=== PATIENT | female | born 1945 | race Caucasian/White ===

== ENCOUNTER 2017-06-30 09:08 | Emergency (ER) | payer MEDICARE ==
[~2017-06-30] VITALS: Ht 157.4 cm; Wt 68.0 kg
[~2017-06-30 09:08] MED LIST: ANTIVERT25 MG PO; ESTRACE0.5 MG PO; NORFLEX100 MG PO; SYNTHROID0.1 MG PO; ULTRAM50 MG PO; VITAMIN D50000 I2 PO; Zofran4 MG PO
[2017-06-30] MEDS ORDERED: MEDROL DOSEPAK4 MG PO (10:40)
[2017-06-30] MEDS ORDERED: CYCLOBENZAPRINE10 MG PO (10:40)
== END 2017-06-30 11:14 | disposition home or self-care (01) ==
LOC: ED 09:08
DX: S39.012A Strain of muscle, fascia and tendon of lower back, initial encounter (principal); Z79.899 Other long term (current) drug therapy; X58.XXXA Exposure to other specified factors, initial encounter; Y93.89 Activity, other specified; Y92.89 Other specified places as the place of occurrence of the external cause; Y99.8 Other external cause status

== ENCOUNTER 2018-01-21 10:12 | Inpatient (IN) | payer MEDICARE ==
[~2018-01-21] VITALS: Ht 157.5 cm; Wt 65.3 kg
[2018-01-21] VITALS (10 sets, daily range): BP systolic 104–124; BP diastolic 55–86
[~2018-01-21 10:12] MED LIST changes: +CYCLOBENZAPRINE10 MG PO; +MEDROL DOSEPAK4 MG PO
[2018-01-21 10:50] LABS: BASO % 0.4 % (0.0-1.0); EOS # 0.1 10*3/uL (0.0-0.4); EOS % 1.2 % (1.0-4.0); HEMATOCRIT 40.9 % (37.0-47.0); HEMOGLOBIN 13.6 g/dl (12.0-16.0); MEAN CELL VOLUME 95.8 fl (81.0-99.0); MEAN CORPUSCULAR HGB 31.9 pg (27.0-31.0); MEAN CORPUSCULAR HGB CONC 33.3 g/dl (33.0-37.0); MEAN PLATELET VOLUME 12.1 fl (9.6-12.3); MONO # 0.5 10*3/uL (0.1-1.0); MONO % 5.4 % (3.0-9.0); NEUT % 51.8 % (47.0-73.0); PLATELET COUNT AUTOMATED 270 10*3/uL (130-400); RED BLOOD COUNT 4.27 10*6/uL (4.10-5.10); WHITE BLOOD COUNT 9.7 10*3/uL (4.8-10.8)
[2018-01-21 10:59] LABS: INTERNATIONAL NORM RATIO 0.9 (2.0-3.5)
[2018-01-21 11:06] LABS: ALKALINE PHOSPHATASE 76 U/L (45-117); BUN 12 mg/dl (7-24); CHLORIDE 106 mmol/L (98-107); CREATININE 0.99 mg/dL (0.55-1.02); POTASSIUM 3.9 mmol/L (3.5-5.1); SGOT/AST 22 IU/L (3-35); SGPT/ALT 17 U/L (12-78); SODIUM 140 mmol/L (136-145); TOTAL PROTEIN 7.6 gm/dL (6.4-8.2); TROPONIN I < 0.015 ng/ml (<0.045)
[2018-01-21] MEDS ORDERED: MULTIVITAMINS1 EAC5 PO (11:54)
[2018-01-21] MEDS ORDERED: B-121000 MCG PO (11:55)
[2018-01-21] MEDS ORDERED: LEVOXYL100 MCG PO (11:58)
[2018-01-21] MEDS ORDERED: CLARITIN10 MG PO (11:58)
[2018-01-21] MEDS ORDERED: ASPIRIN CHEWABL81 MG PO (11:58)
[2018-01-21 14:28] LABS: FREE T4 1.35 ng/dl (0.76-1.46); PHOSPHOROUS 3.1 mg/dL (2.5-4.9)
[2018-01-21 14:30] LABS: TROPONIN I < 0.015 ng/ml (<0.045)
[2018-01-21 17:08] LABS: BILIRUBIN NEGATIVE (NEGATIVE); BLOOD NEGATIVE (NEGATIVE); CLARITY SL CLOUDY (CLEAR); COLOR YELLOW (YELLOW); GLUCOSE NEGATIVE (NEGATIVE); KETONE TRACE (NEGATIVE); LEUKO ESTERASE 1+ (NEGATIVE); NITRITE NEGATIVE (NEGATIVE); PH 5.5 (5.0-9.0); UROBILINOGEN 0.2 E.U./dl (0.2-1.0)
[2018-01-21 17:25] LABS: BACTERIA 4+; WBC 51-100 wbc/hpf (0-5)
[2018-01-22] VITALS: BP 102/46
[2018-01-22 04:00] VITALS: BP 118/64
[2018-01-22 06:06] LABS: BASO # 0.1 10*3/uL (0.0-0.1); BASO % 0.6 % (0.0-1.0); EOS # 0.2 10*3/uL (0.0-0.4); EOS % 1.8 % (1.0-4.0); HEMATOCRIT 37.7 % (37.0-47.0); HEMOGLOBIN 12.4 g/dl (12.0-16.0); LYMPH # 3.2 10*3/uL (1.3-4.4); MEAN CELL VOLUME 96.4 fl (81.0-99.0); MEAN CORPUSCULAR HGB 31.7 pg (27.0-31.0); MEAN CORPUSCULAR HGB CONC 32.9 g/dl (33.0-37.0); MEAN PLATELET VOLUME 12.3 fl (9.6-12.3); MONO # 0.6 10*3/uL (0.1-1.0); MONO % 6.8 % (3.0-9.0); NEUT # 4.2 10*3/uL (2.3-7.9); NEUT % 51.4 % (47.0-73.0); PLATELET COUNT AUTOMATED 241 10*3/uL (130-400); RED BLOOD COUNT 3.91 10*6/uL (4.10-5.10); WHITE BLOOD COUNT 8.2 10*3/uL (4.8-10.8)
[2018-01-22 06:35] LABS: ALBUMIN 3.6 gm/dl (3.1-4.5); ALKALINE PHOSPHATASE 68 U/L (45-117); BUN 15 mg/dl (7-24); CHLORIDE 107 mmol/L (98-107); CREATININE 0.96 mg/dL (0.55-1.02); SGOT/AST 16 IU/L (3-35); SGPT/ALT 16 U/L (12-78); SODIUM 139 mmol/L (136-145); TOTAL PROTEIN 6.9 gm/dL (6.4-8.2)
[2018-01-22 08:00] VITALS: BP 102/60; BP 115/58
[2018-01-22] MEDS ORDERED: MUCINEX DM 30/61 TAB PO (11:17)
[2018-01-22] MEDS ORDERED: VITAMIN D31000 UNIT PO (11:17)
[2018-01-22] MEDS ORDERED: FLONASE ALLERG9.9 ML NAS (11:17)
[2018-01-22] MEDS ORDERED: XARE20MG PO (11:17)
[2018-01-22] MEDS ORDERED: METOPROLOL SUCC25 M2 PO (11:17)
[2018-01-22] MEDS ORDERED: CIPRO250 MG PO (11:23)
[2018-01-22 12:00] VITALS: BP 109/64
== END 2018-01-22 13:10 | disposition home or self-care (01) | DRG 309 ==
LOC: ED 10:12 → ICCU 11:17 → EDHOLD 11:17 → ICCU 11:30
PROVIDERS: Internal Medicine Hospice and Palliative Medicine; Student in an Organized Health Care Education/Training Program
DX: I48.0 Paroxysmal atrial fibrillation (principal); N39.0 Urinary tract infection, site not specified; E67.8 Other specified hyperalimentation; E03.9 Hypothyroidism, unspecified; E55.9 Vitamin D deficiency, unspecified; R05 Cough; Z79.82 Long term (current) use of aspirin; Z79.899 Other long term (current) drug therapy; Z98.42 Cataract extraction status, left eye; Z98.41 Cataract extraction status, right eye; Z87.891 Personal history of nicotine dependence; Z90.712 Acquired absence of cervix with remaining uterus; Z88.2 Allergy status to sulfonamides; Z82.3 Family history of stroke; Z82.49 Family history of ischemic heart disease and other diseases of the circulatory system

== ENCOUNTER 2018-02-15 08:30 | Inpatient (IN) | payer MEDICARE ==
[2018-02-15] VITALS (9 sets, daily range): BP systolic 100–138; BP diastolic 60–84
[~2018-02-15] VITALS: Ht 157.4 cm; Wt 64.4 kg
[~2018-02-15 08:30] MED LIST changes: +ASPIRIN CHEWABL81 MG PO; +B-121000 MCG PO; +CIPRO250 MG PO; +CLARITIN10 MG PO; +FLONASE ALLERG9.9 ML NAS; +LEVOXYL100 MCG PO; +METOPROLOL SUCC25 M2 PO; +MUCINEX DM 30/61 TAB PO; +MULTIVITAMINS1 EAC5 PO; +VITAMIN D31000 UNIT PO; +XARE20MG PO
[2018-02-15 08:55] LABS: BASO # 0.1 10*3/uL (0.0-0.1); BASO % 0.6 % (0.0-1.0); EOS # 0.1 10*3/uL (0.0-0.4); EOS % 0.9 % (1.0-4.0); HEMATOCRIT 41.4 % (37.0-47.0); HEMOGLOBIN 13.9 g/dl (12.0-16.0); LYMPH # 3.4 10*3/uL (1.3-4.4); LYMPH % 38.3 % (27.0-41.0); MEAN CELL VOLUME 94.7 fl (81.0-99.0); MEAN CORPUSCULAR HGB 31.8 pg (27.0-31.0); MEAN CORPUSCULAR HGB CONC 33.6 g/dl (33.0-37.0); MEAN PLATELET VOLUME 11.8 fl (9.6-12.3); MONO # 0.5 10*3/uL (0.1-1.0); MONO % 5.4 % (3.0-9.0); NEUT # 4.8 10*3/uL (2.3-7.9); NEUT % 54.5 % (47.0-73.0); PLATELET COUNT AUTOMATED 278 10*3/uL (130-400); RED BLOOD COUNT 4.37 10*6/uL (4.10-5.10); WHITE BLOOD COUNT 8.8 10*3/uL (4.8-10.8)
[2018-02-15 09:04] LABS: ACT PARTIAL THROMBO TIME 30.7 SECONDS (20.8-31.5)
[2018-02-15 09:12] LABS: ALBUMIN 3.7 gm/dl (3.1-4.5); ALKALINE PHOSPHATASE 82 U/L (45-117); BUN 15 mg/dl (7-24); CHLORIDE 107 mmol/L (98-107); LIPASE 211 U/L (73-393); SGOT/AST 16 IU/L (3-35); SGPT/ALT 19 U/L (12-78); SODIUM 140 mmol/L (136-145); TOTAL PROTEIN 7.7 gm/dL (6.4-8.2)
[2018-02-15 09:14] LABS: TROPONIN I < 0.015 ng/ml (<0.045)
[2018-02-15 13:07] LABS: BILIRUBIN NEGATIVE (NEGATIVE); BLOOD NEGATIVE (NEGATIVE); CLARITY SL CLOUDY (CLEAR); COLOR YELLOW (YELLOW); GLUCOSE NEGATIVE (NEGATIVE); KETONE TRACE (NEGATIVE); LEUKO ESTERASE 1+ (NEGATIVE); NITRITE NEGATIVE (NEGATIVE); SPECIFIC GRAVITY 1.015 (1.005-1.030); UROBILINOGEN 0.2 E.U./dl (0.2-1.0)
[2018-02-15 13:15] LABS: MUCOUS TRACE
[2018-02-15] MEDS ORDERED: METOPROLOL TART50 M1 PO (14:27)
[2018-02-16] VITALS: BP 120/65
[2018-02-16 07:28] LABS: BASO % 0.5 % (0.0-1.0); EOS # 0.1 10*3/uL (0.0-0.4); EOS % 1.3 % (1.0-4.0); HEMATOCRIT 37.5 % (37.0-47.0); HEMOGLOBIN 12.3 g/dl (12.0-16.0); LYMPH # 3.1 10*3/uL (1.3-4.4); MEAN CELL VOLUME 96.2 fl (81.0-99.0); MEAN CORPUSCULAR HGB 31.5 pg (27.0-31.0); MEAN CORPUSCULAR HGB CONC 32.8 g/dl (33.0-37.0); MONO # 0.5 10*3/uL (0.1-1.0); NEUT % 51.9 % (47.0-73.0); PLATELET COUNT AUTOMATED 234 10*3/uL (130-400); RED CELL DISTRI WIDTH 13.1 % (0-14.5); WHITE BLOOD COUNT 7.7 10*3/uL (4.8-10.8)
[2018-02-16 07:41] LABS: BUN 16 mg/dl (7-24); CHLORIDE 105 mmol/L (98-107); CREATININE 0.92 mg/dL (0.55-1.02); PHOSPHOROUS 3.5 mg/dL (2.5-4.9); POTASSIUM 4.1 mmol/L (3.5-5.1); SODIUM 139 mmol/L (136-145)
[2018-02-16 07:51] LABS: FREE T4 1.29 ng/dl (0.76-1.46)
[2018-02-16 08:00] VITALS: BP 126/63
[2018-02-16 12:00] VITALS: BP 100/50
[2018-02-16] MEDS ORDERED: XARE20MG PO (14:17)
[2018-02-16] MEDS ORDERED: METOPROLOL TART50 M1 PO (14:17)
== END 2018-02-16 16:22 | disposition home or self-care (01) | DRG 309 ==
LOC: ED 08:30 → 4E 10:01 → EDHOLD 10:01 → 4E 10:12
PROVIDERS: Emergency Medicine; Student in an Organized Health Care Education/Training Program
DX: I48.0 Paroxysmal atrial fibrillation (principal); N17.9 Acute kidney failure, unspecified; E83.41 Hypermagnesemia; I36.1 Nonrheumatic tricuspid (valve) insufficiency; I34.0 Nonrheumatic mitral (valve) insufficiency; E03.9 Hypothyroidism, unspecified; R73.9 Hyperglycemia, unspecified; Z66 Do not resuscitate; Z51.5 Encounter for palliative care; Z90.710 Acquired absence of both cervix and uterus; Z98.42 Cataract extraction status, left eye; Z98.41 Cataract extraction status, right eye; Z87.891 Personal history of nicotine dependence; Z82.3 Family history of stroke; Z82.49 Family history of ischemic heart disease and other diseases of the circulatory system; Z88.2 Allergy status to sulfonamides; Z79.899 Other long term (current) drug therapy

== ENCOUNTER → 2018-03-03 | Outpatient (CLI) | payer MEDICARE ==
[~2018-03-03] MED LIST changes: +METOPROLOL TART50 M1 PO; +XARELTO20 M1 PO
== END | disposition home or self-care (01) ==
LOC: RESCLI 02:08
DX: I10 Essential (primary) hypertension (principal); E03.9 Hypothyroidism, unspecified; E78.5 Hyperlipidemia, unspecified; I48.0 Paroxysmal atrial fibrillation; E55.9 Vitamin D deficiency, unspecified; E66.3 Overweight

== ENCOUNTER → 2018-03-05 | Outpatient (CLI) | payer MEDICARE ==
[~2018-03-05] VITALS: Ht 157.4 cm; Wt 64.9 kg
== END | disposition home or self-care (01) ==
LOC: SDC 03-04 10:15 → EDSTATUS 10:15 → SDC 10:15 → CARD 12:00 → SDC 12:00
DX: I48.91 Unspecified atrial fibrillation (principal); E03.9 Hypothyroidism, unspecified; Z82.49 Family history of ischemic heart disease and other diseases of the circulatory system; Z53.9 Procedure and treatment not carried out, unspecified reason

== ENCOUNTER → 2018-03-10 | Outpatient (CLI) | payer MEDICARE | END | disposition home or self-care (01) | LOC: RESCLI 03:46 | DX: I10 Essential (primary) hypertension (principal); E03.9 Hypothyroidism, unspecified; E78.5 Hyperlipidemia, unspecified; I48.0 Paroxysmal atrial fibrillation; E55.9 Vitamin D deficiency, unspecified; E66.3 Overweight; R00.1 Bradycardia, unspecified; Z87.891 Personal history of nicotine dependence ==

== ENCOUNTER → 2018-04-06 | Outpatient (CLI) | payer MEDICARE ==
[~2018-04-06] MED LIST changes: +ALLERGY RELIE15.8 ML NAS; +BISACODYL LAXATI5 MG PO; +DILTIAZEM 24HR120 MG PO; +DOXYCYCLINE100 M3 PO; +FLECAINIDE ACE100 M1 PO; +GOOD SENSE400 MG/5 M PO; +HYDROCODONE-AC1 EAC1 PO; +KLOR-CON 1010 ME1 PO; +LASIX20 MG PO; +LEXAPRO10 MG PO; +LEXAPRO5 M1 PO; +Lopressor25 MG PO; +PROPAFENONE HC225 M1 PO; +SODIUM CHLORI1000 MG PO; +SODIUM CHLORIDE1 GM PO; +TYLENOL325 M2 PO
== END | disposition home or self-care (01) ==
LOC: RESCLI 04:31
DX: I10 Essential (primary) hypertension (principal); E03.9 Hypothyroidism, unspecified; E78.5 Hyperlipidemia, unspecified; I48.0 Paroxysmal atrial fibrillation; E55.9 Vitamin D deficiency, unspecified; E66.3 Overweight; R00.1 Bradycardia, unspecified; Z90.710 Acquired absence of both cervix and uterus; Z87.891 Personal history of nicotine dependence

== ENCOUNTER → 2018-04-09 | Outpatient (CLI) | payer MEDICARE | END | disposition home or self-care (01) | LOC: RAD 12:15 | DX: M47.892 Other spondylosis, cervical region (principal); M43.12 Spondylolisthesis, cervical region; M19.011 Primary osteoarthritis, right shoulder ==

== ENCOUNTER 2018-04-17 10:49 | Inpatient (IN) | payer MEDICARE ==
[2018-04-17] VITALS (17 sets, daily range): BP systolic 66–128; BP diastolic 30–76
[~2018-04-17] VITALS: Ht 157.5 cm; Wt 64.6 kg
--- NOTE | ~2018-04-17 | CON ---
[place], [place] REPORT OF CONSULTATION NAME: [facility] [id number] UNIT #: [id number] ROOM: 522 DOCTOR: TEQUILA GONZALEZ MD BIRTHDATE: [birth year] DOS: 04/18/2018 PSYCHIATRIC CONSULTATION REPORT REASON FOR CONSULTATION: Medication management for depression and anxiety. HISTORY OF PRESENT ILLNESS: The patient was seen, chart reviewed and spoke with nursing staff. Per nursing, the patient has been becoming increasingly depressed and anxious, mostly after the of her a few months ago. Reportedly, lately she was also having some symptoms of sundowning. The patient was pleasant and cooperative. She is a 72-year-old female who got admitted to the ICU for management of hypotension and bradycardia. She was sitting by the window on a chair. She talked about her anxiety and the depression mostly after the of her . She said that lately she feels extremely tired. She wakes up in the morning, she eats her breakfast and then goes back to bed and sleeps all day. She also seems to have significant memory impairment, not able to recall the month, not able to recall the year or the place. She acknowledges that her memory has been going downhill. She feels sad and down, but denied hopelessness or helplessness. Denied any other neurovegetative signs or symptoms of depression. She reports excessive sleep. Denied any problem with her appetite. She denied any symptoms of psychosis, demian or hypomania. PAST MEDICAL HISTORY: Significant for atrial fibrillation, hypermagnesemia, hypothyroidism and vitamin D deficiency. PAST PSYCHIATRIC HISTORY: The patient denied any prior psychiatric hospitalization, denied past suicide attempt. No suicide in the family. Denied having any gun at home. She has never been on any psychotropics in the past. SUBSTANCE ABUSE HISTORY: The patient denied any drugs or alcohol. SOCIAL HISTORY: She was born and raised in [place]. She finished high school, twice, currently , lives at home on her own. The son and the [id number]-rtd live in the trailer close by. MENTAL STATUS EXAMINATION: The patient was pleasant and cooperative. She was alert and oriented to month only. Described her mood as "I don't know." Affect was pretty anxious and distraught. She denied any auditory or visual hallucination. No delusion or paranoia noted. She denied any suicidal ideation, intent or plan. She also denied any homicidal ideation, intent or plan. Insight and judgment were impaired because of the fact that her cognitive is slowly declining, cognitive impairment. ASSESSMENT: 1. Depressive disorder, not otherwise specified, 2. Generalized anxiety disorder. 3. Cognitive disorder, not otherwise specified; rule out major neurocognitive disorder. [place], [place] REPORT OF CONSULTATION NAME: SAIDA HUYNH UNIT #: [id number] ROOM: 522 DOCTOR: TEQUILA GONZALEZ MD BIRTHDATE: [birth year] PLAN: 1. I will start her on Lexapro 5 mg in the morning with a plan to titrate that up if needed. 2. The patient needs a psychiatric followup appointment on discharge. 3. Prior to the discharge, the medical team needs to sit down with the patient's son and discuss the discharge plan and make sure the son is comfortable with taking her back home and does not have any safety concern for the patient or anyone else. We will sign off on this patient. If there is any question or concern, please give us a call. TEQUILA GONZALEZ MD CM:CONSTR:REPORT OF CONSULTATION 1233 05/12/18 0810 interface
--- NOTE | ~2018-04-17 | PR ---
[place], [place] PROGRESS NOTE [facility]: [facility] [id number] UNIT #: [id number] ROOM: 522 DOCTOR: JEISON ALANIZ MD BIRTHDATE: [birth year] DOS: 04/23/2018 SUBJECTIVE: The patient was seen today at her bedside, 04/23/2018, for followup of her atrial fibrillation and diastolic heart failure. For the last several days, her rhythms have been well controlled with propafenone and diltiazem and she appears hemodynamically stable. She denies any chest pain or palpitations and is breathing easily. PHYSICAL EXAMINATION: VITAL SIGNS: Her pulse is 70 and regular, blood pressure is 114/63. She is afebrile. NECK: Supple. She has no jugular distention. Carotids are full. She has no neck vein distention. LUNGS: Respirations are unlabored. Her chest is clear. HEART: Has a regular rhythm with an S4 gallop. ABDOMEN: Benign. EXTREMITIES: Showed no edema. IMPRESSION: 1. Conduction system disorder (sick sinus syndrome) with tachybrady variant. 2. Paroxysmal atrial fibrillation with rapid ventricular response (controlled with propafenone this admission). 3. Bradycardia on admission, probably due to underlying conduction system disorder, exacerbated by metoprolol. 4. Hyponatremia, being managed by Nephrology. 5. Degenerative joint disease with neck and back pain -- improved. 6. Confusion. PLAN: No changes in her cardiac medications are planned at this time. I would like her to be evaluated by Electrophysiology in [place]. We will see if we can arrange for that in the near future. She should follow up with Cardiology in the next month or so here at [facility]. From our perspective, she is stable for discharge. We thank the hospitalist physicians for asking our advice regarding her care. [place], [place] PROGRESS NOTE NAME: SAIDA HUYNH UNIT #: [id number] ROOM: 522 DOCTOR: JEISON ALANIZ MD BIRTHDATE: [birth year] JEISON ALANIZ MD CM:PNTRANS [id number] JEISON ALANIZ MD 04/24/18 1314 interface
--- NOTE | ~2018-04-17 | PR ---
[place], [place] PROGRESS NOTE NAME: [id number] UNIT #: [id number] ROOM: 522 DOCTOR: JEISON ALANIZ MD BIRTHDATE: [birth year] DOS: 04/21/2018 SUBJECTIVE: The patient was seen at her bedside today 04/21/2018 for followup of her atrial fibrillation and sick sinus syndrome (tachybrady variant). She has remained in sinus rhythm for the last 36 hours and states that she does feel less confused. She does seem more oriented on conversation. She still has considerable back, neck and shoulder pain. She was seen earlier today by nephrology for evaluation of her hyponatremia. PHYSICAL EXAMINATION: VITAL SIGNS: Today, her pulse is 91 and regular, blood pressure is 148/73. She is afebrile. NECK: Supple. She has no jugular distention. Carotids are full. LUNGS: Respirations are unlabored. Her chest is clear. HEART: Has a regular rhythm. She has a fourth heart sound, but no third heart sound. The PMI is not displaced. ABDOMEN: Soft and normally active. EXTREMITIES: Showed no edema. IMPRESSION: 1. Conduction system disorder (sick sinus syndrome) with tachybrady variant. 2. Paroxysmal atrial fibrillation with rapid ventricular response. 3. Bradycardia on admission, probably due to underlying conduction system disorder exacerbated by metoprolol. 4. Hyponatremia. 5. Degenerative joint disease with neck and back pain. 6. Confusion, which appears to have gotten worse lately. The patient appears somewhat less confused on her current combination of propafenone and diltiazem rather than flecainide and metoprolol. PLAN: We will continue her current medical management while her electrolytes are being managed by the lung gun operator. I thank the hospitalist physicians for asking our advice regarding her care. [place], [place] PROGRESS NOTE NAME: CHRISBARTSAIDA UNIT #: [id number] ROOM: 522 DOCTOR: JEISON ALANIZ MD BIRTHDATE: [birth year] JEISON ALANIZ MD CM:PNTRANS [id number] JEISON ALANIZ MD 04/21/18 1721 interface
--- NOTE | ~2018-04-17 | PR ---
[place], [place] PROGRESS NOTE NAME: SAIDA HUYNH [facility] #: [id number] UNIT #: [id number] ROOM: 522 DOCTOR: TAM COBIAN MD BIRTHDATE: [birth year] DOS: NEPHROLOGY PROGRESS NOTE SUBJECTIVE: The patient was seen and evaluated in followup of hyponatremia. She is still remaining confused, especially at nighttime with some delirium. She feels now that she was having a republican with a lot of visitors last night in the hospital. She does not know that she is in the hospital exactly right now. Her sodium levels have been slowly improving at appropriate rate with the institution of the fluid restriction and salt tablets for now. She has gone up to 6 points in 24 hours with a creatinine that is up slightly to 0.91. In general, her other electrolytes are still within normal limits. Her white blood cell count is slowly down trending, hemoglobin is holding steady, and the rest of her vital signs have been stable. OBJECTIVE: VITAL SIGNS: 98.1, 74, 16, 107/65, 96%. GENERAL: Awake, alert, oriented to herself and place, not to time and situation. She knows she is in [place] but did not think she was in the hospital last night. HEAD AND NECK: Sclerae are anicteric. Oropharynx dry. No JVD, no lymphadenopathy. LUNGS: Clear bilaterally, no audible rales or wheeze. Decreased breath sounds at bases. CARDIOVASCULAR: Regular rate. No rub. ABDOMEN: Soft, nontender, nondistended. There is no flank tenderness, no suprapubic tenderness. SKIN: Without diffuse rashes or breakdown. EXTREMITIES: Weak musculoskeletal with shoulder pain noted and tenderness, decreased range of motion. Lower extremities with no significant pitting edema. MAKENZIE stockings are in place. LABORATORIES AND DIAGNOSTICS: White blood cell count 12, hemoglobin 10.5, platelets 332. Sodium 131, up from 125; potassium 3.9; chloride 95; bicarb 25; BUN 15; creatinine 0.91. Again, just to recall her urine specimen showed urine sodium of only 23, chloride of 11, and potassium of 14 with an osmolality of 190 after fluids and Lasix have been given as well. ASSESSMENT AND PLAN: 1. Hyponatremia. This is improving, likely solute depleted. Continue fluid restriction and increase protein and solute intake. Continue sodium chloride tablets for now. Hopefully, we will be able to reduce or discontinue these soon before discharge. 2. Confusion and delirium are unlikely to be related to her hyponatremia. Seek other causes such as infection, dementia, and other sources of delirium such as medications and continue to reorient her as able. [place], [place] PROGRESS NOTE NAME: SAIDA HUYNH UNIT #: [id number] ROOM: 522 DOCTOR: TAM COBIAN MD BIRTHDATE: [birth year] TAM COBIAN MD CM:PNTRANS [id number] TAM COBIAN MD 04/23/18 0325 interface
--- NOTE | ~2018-04-17 | PR ---
[place], [place] PROGRESS NOTE NAME: SAIDA HUYNH [facility] #: [id number] UNIT #: [id number] ROOM: 522 DOCTOR: MANGO LEE,TAM Lorenzo BIRTHDATE: [birth year] DOS: SUBJECTIVE: The patient is feeling better. Less delirious eating a bit more. No family is at the bedside at this time. Sodiums have improved further to 137 today. Creatinine remained stable at 0.9. OBJECTIVE: VITAL SIGNS: 114/63, 16, 71, 98.3. GENERAL: No acute distress, sitting upright in bed, breathing is comfortable. Normal work of breathing and age appropriate. LUNGS: Clear. ABDOMEN: Soft, nontender, nondistended. SKIN: Without diffuse rash. NEUROLOGIC: Motor intact. Sensation intact. LABORATORIES AND DIAGNOSTICS: Sodium 137, up from 131. Potassium 3.7, chloride 101, bicarbonate 27, BUN 15, creatinine 0.92, glucose 89, calcium 8.5. ASSESSMENT AND PLAN: Hyponatremia, improving with solid intake and sodium chloride tablets. This can be discontinued at this time and followed for recurrent drops in sodium. She has poor intake, I suspect this might be possible, but should improve with oral solute intake and protein encouragement. Her delirium and dementia are improving. Bradycardia has improved and renal function is stable. TAM COBIAN MD CM:PNTRANS [phone] TAM COBIAN MD 04/25/18 2003 interface
--- NOTE | ~2018-04-17 | CON ---
[place], [place] REPORT OF CONSULTATION [id number] UNIT #: [id number] ROOM: 522 DOCTOR: JEISON ALANIZ MD BIRTHDATE: [birth year] DOS: 04/17/2018 REASON FOR CONSULTATION: Bradycardia. HISTORY OF PRESENT ILLNESS: The patient is a 72-year-old woman who has no previous history of coronary artery disease or valvular heart disease. She was admitted to the hospital in 12/2017 with a probable urinary tract infection and was found to have atrial fibrillation with a rapid ventricular response. She converted to sinus rhythm and was discharged on metoprolol. She was subsequently hospitalized with atrial fibrillation and rapid ventricular response, 02/15/2018. Once again, she converted to sinus rhythm spontaneously. She was seen in followup in the office on 03/03/2018 and was back in atrial fibrillation. Metoprolol was increased and she was placed on flecainide. Within a week, she had converted spontaneously to sinus rhythm. During all of this time, she has been complaining of fatigue and sleepiness. She states that she has no ambition. She does note that when her metoprolol dose was increased, this got worse and therefore with physician guidance, she did decrease the metoprolol back to 25 mg twice a day. At the same time, as all of these problems with her heart, she has had problems with her right shoulder and back. She stated that she injured her right arm last fall when she was doing some gardening. Over time, it has gotten worse. She now has a constant pain in her arm and back. Today, the pain in her arm and back were severe. She also did complain about some lightheadedness, but denied any syncope. She presented to the Emergency Room for evaluation of her arm and back pain and was noted to be hypotensive and bradycardic with a heart rate of about 30. She was therefore admitted for management of her bradycardia. Flecainide and metoprolol were stopped and she was placed on a dopamine drip with improvement in blood pressure and heart rate. She is now in the ICU and remains on the dopamine drip. She does feel better, but is still concerned about what her options are for further management of her atrial fibrillation. PAST MEDICAL HISTORY: Includes: 1. Paroxysmal atrial fibrillation, first documented 01/21/2018, with recurrence, prompting hospitalization 02/15/2018. 2. The patient started on flecainide as an outpatient, 03/03/2018, by Dr. Alice Gifford and subsequently converted to sinus rhythm. 3. Chronic hypothyroidism, on replacement. 4. Status post hysterectomy and tonsillectomy. 5. Status post bilateral cataract extraction. 6. Neck degenerative joint disease with right shoulder, neck and back pains. MEDICATIONS PRIOR TO ADMISSION: Fluticasone nasal spray daily, vitamin D 1000 units daily, Mucinex DM b.i.d., flecainide 100 mg b.i.d., furosemide 20 mg daily, levothyroxine 100 mcg daily, metoprolol tartrate 25 mg b.i.d., multivitamin once a day, potassium 10 mEq per day and rivaroxaban 20 mg at bedtime. ALLERGIES: The patient lists an allergy to SULFA DRUGS. [place], [place] REPORT OF CONSULTATION NAME: SAIDA HUYNH UNIT #: [id number] ROOM: 522 DOCTOR: JEISON ALANIZ MD BIRTHDATE: [birth year] REVIEW OF SYSTEMS: The patient denies diplopia or loss of vision. She does admit to severe fatigue and sleepiness. She does sleep much of the time. She states that she has no ambition especially since she has been on metoprolol. She denies focal weakness. She denies syncope. She denies any bleeding from any site and specifically denies hemoptysis, hematemesis, hematochezia or hematuria. She denies any change in bowel or bladder habits. She denies dyspnea. She denies fevers, chills, sweats or recent weight change. She does have chronic neck, back and right shoulder pains as noted above. She denies any peripheral edema. She denies polyuria or polydipsia. The remainder of the review of systems is negative except as noted above. FAMILY HISTORY: Negative for early coronary artery disease. SOCIAL HISTORY: The patient lives with family. She does not smoke or consume alcohol. PHYSICAL EXAMINATION: GENERAL: The patient is an overweight white female who is awake, alert and oriented. She does appear somewhat anxious. VITAL SIGNS: Pulse is 64 and regular, blood pressure is 110/52. She is afebrile. She weighs 64.5 kg and has a body mass index of 26. HEENT: Normocephalic and atraumatic. Extraocular muscles are intact. Sclerae are clear. Pupils equal, round and react to light. The oral mucosa is moist. Tongue is midline. NECK: Supple. She has no jugular distention. Carotids are full. I heard no bruits. She had no neck or supraclavicular masses, no thyromegaly. LUNGS: Respirations are unlabored. Her chest is clear to auscultation and percussion. She has no presacral edema or chest wall tenderness. HEART: Has a regular rhythm. She has a fourth heart sound, but no third heart sound. The PMI is not displaced. She has no precordial heave, lift or thrill. ABDOMEN: Soft and normally active without masses, organomegaly or bruits. EXTREMITIES: Showed no edema. Peripheral pulses are palpable in the feet. LABORATORY DATA: I reviewed her electrocardiograms, they show sinus rhythm and sinus bradycardia. No acute ST or T-wave changes are seen. Chest x-ray is normal. Hemoglobin is 10.1, hematocrit 30.3. There are 12,800 white cells and 345,000 platelets. Sodium is 127, potassium 5.1, chloride 95, CO2 25, BUN 20, creatinine 1.39. Troponin levels have been negative. IMPRESSIONS: 1. Conduction system disorder (sick sinus syndrome) with tachybrady variant. 2. Paroxysmal atrial fibrillation with rapid ventricular response. 3. Bradycardia due to underlying conduction system disorder as well as the fact of medications. 4. Degenerative joint disease with neck and back pain. PLAN: For now, we will withhold all rate slowing medications, but resume her flecainide. Once the beta alyson has been metabolized, we will consider starting her on a low dose of diltiazem. Since flecainide can increase the rate of atrial fibrillation, we need to have her on some rate limiting medicines as [place], [place] REPORT OF CONSULTATION NAME: SAIDA HUYNH [place] UNIT #: [id number] ROOM: 522 DOCTOR: JEISON ALANIZ MD BIRTHDATE: [birth year] long as she is on flecainide. In the long run, another medicine such as propafenone or tikosyn may be more preferable, but since she has been on flecainide already and since it has been effective, we will stay with it for the time being. Once she is stabilized and ready for discharge, we will arrange for her to have an outpatient evaluation by the public relations professional to see if they have any other thoughts regarding her antiarrhythmic therapy or whether or not she will require a pacemaker to help manage her tachybrady syndrome. I thank the hospitalist physicians for asking our advice regarding her care. JEISON ALANIZ MD CM:CONSTR:REPORT OF CONSULTATION 1653 04/29/18 0817 interface
--- NOTE | ~2018-04-17 | PR ---
[place], [place] PROGRESS NOTE NAME: SAIDA HUYNH [facility] #: [id number] UNIT #: [id number] ROOM: 522 DOCTOR: JEISON ALANIZ MD BIRTHDATE: [birth year] DOS: 04/22/2018 SUBJECTIVE: The patient was seen at her bedside today 04/22/2018 for followup of her paroxysmal atrial fibrillation. In the last few days, she has been on propafenone and a low dose of diltiazem. This appears to have controlled her atrial arrhythmias and blood pressure fairly well. This morning, she is confused, but denies any chest pain or palpitations. She is breathing easily. PHYSICAL EXAMINATION: VITAL SIGNS: Today, her pulse is 75 and regular, blood pressure is 127/54. She is afebrile. She weighs 64.6 kg. NECK: Supple. She has no jugular distention. Carotids are full. I heard no bruits. She has no neck or supraclavicular masses and no thyromegaly. LUNGS: Respirations are unlabored. Her chest is clear to auscultation and percussion. MUSCULOSKELETAL: She has no presacral edema. HEART: Has a regular rhythm with a fourth heart sound, but no third heart sound or murmur. ABDOMEN: Soft. EXTREMITIES: Showed no edema. LABORATORY DATA: White count today is 12,000. Her hemoglobin is 10.5, platelet count 332,000. Sodium 131, potassium 3.9, chloride 95, CO2 of 25, BUN 15, creatinine 0.91. IMPRESSION: 1. Conduction system disorder (sick sinus syndrome) with tachybrady variant. 2. Paroxysmal atrial fibrillation with rapid ventricular response (controlled with propafenone this admission). 3. Bradycardia on admission, probably due to underlying conduction system disorder, exacerbated by metoprolol. 4. Hyponatremia, being evaluated and managed by Nephrology. 5. Degenerative joint disease with neck and back pain. 6. Confusion. Evaluation in progress. PLAN: We will continue her current cardiac management; however, I will switch her from immediate release diltiazem to diltiazem CD to simplify her medical care. No other management strategies are planned at this point; however, once she has been discharged, she probably should be evaluated by Electrophysiology in [place] to see if there are any other options for her long-term care or for current management is adequate. I thank the hospitalist physicians for asking our advice regarding her care. [place], [place] PROGRESS NOTE NAME: SAIDA HUYNH [place] UNIT #: [id number] ROOM: 522 DOCTOR: JEISON ALANIZ MD BIRTHDATE: [birth year] JEISON ALANIZ MD CM:PNTRANS [phone] JEISON ALANIZ MD 04/22/181953 interface
--- NOTE | ~2018-04-17 | PR ---
[place], [place] PROGRESS NOTE NAME: SAIDA HUYNH [facility] #: [id number] UNIT #: [id number] ROOM: 522 DOCTOR: JEISON ALANIZ MD BIRTHDATE: [birth year] DOS: 04/18/2018 SUBJECTIVE: The patient was seen at her bedside in the intensive care unit today 04/18/2018 for followup of her paroxysmal atrial fibrillation. She has remained in sinus rhythm since admission and we were able to wean her off of dopamine overnight. She has maintained an adequate heart rate without the dopamine since her metoprolol was stopped. She still does seem quite confused and apparently did have a lot of problems with sundown syndrome overnight. She denies any chest pain or palpitations. PHYSICAL EXAMINATION: VITAL SIGNS: Today, her pulse is 70 and regular, blood pressure is 122/59. She is afebrile. NECK: Supple. She has no jugular distention. Carotids are full. I heard no bruits. LUNGS: Respirations are unlabored. Her chest is clear. HEART: Has a regular rhythm. She has a fourth heart sound, but no third heart sound or murmur. The PMI is not displaced. She has no precordial heave, lift or thrill. ABDOMEN: Benign. EXTREMITIES: Showed no edema. LABORATORY DATA: Electrolytes today continued to show hyponatremia with a sodium of 126, potassium is 4.4, chloride 94, CO2 of 24, BUN 15, creatinine 0.97. Hemoglobin is 9.9 with hematocrit of 29.5. There are 13,200 white cells and 307,000 platelets present. IMPRESSION: 1. Conduction system disorder (sick sinus syndrome) with tachybrady variant. 2. Paroxysmal atrial fibrillation with rapid ventricular response. 3. Bradycardia due to underlying conduction system disorder as well as metoprolol. 4. Degenerative joint disease with neck and back pain. 5. Confusion, which appears to be new over the last several months. PLAN: For now, we are withholding rate slowing medications. This may be problematic given the fact that she is on flecainide as an antiarrhythmic drug. I am concerned that flecainide may be contributing to her confusion as well; therefore, I will be stopping flecainide. We will allow to wash out for 24 hours and then start her on a different antiarrhythmic, probably propafenone. For now, we will withhold all rate slowing medications unless she does develop tachycardia again. Once she has been stabilized in the hospital and has been discharged, we will arrange for her to have an appointment with the communications systems engineer in [place] for further management. She may be transferred from the ICU to a telemetry unit. We will continue to follow her in the hospital. I thank the hospitalist physicians for asking our advice regarding her care. [place], [place] PROGRESS NOTE NAME: SAIDA HUYNH UNIT #: [id number] ROOM: 522 DOCTOR: JEISON ALANIZ MD BIRTHDATE: [birth year] JEISON ALANIZ MD CM:PNTRANS 1422 1608 JEISON ALANIZ MD 04/19/18 1835 interface
--- NOTE | ~2018-04-17 | PR ---
[place], [place] PROGRESS NOTE NAME: SAIDA HUYNH [facility] #: [id number] UNIT #: [id number] ROOM: 522 DOCTOR: JEISON ALANIZ MD BIRTHDATE: [birth year] DOS: 04/20/2018 SUBJECTIVE: The patient was seen at her bedside today 04/20/2018 for followup of her paroxysmal atrial fibrillation. Yesterday, I did stop her flecainide because I was concerned that it might be contributing to her altered mental status. I did place her on propafenone after a 24-hour washout. We have kept metoprolol on hold because it seemed to cause her severe fatigue; however, last night, she did have an episode of atrial fibrillation with rapid ventricular response. She was given oral diltiazem and she converted spontaneously to sinus rhythm. She now feels well and does seem more awake and alert than she has for the last few days. PHYSICAL EXAMINATION: VITAL SIGNS: Today, her pulse is 77 and regular, blood pressure is 122/80. She weighs 64.5 kg and has a body mass index of 26. HEENT: Normocephalic and atraumatic. Extraocular muscles are intact. Sclerae are clear. Pupils equal, round and react to light. The oral mucosa is moist. Tongue is midline. NECK: Supple. She has no jugular distention. Carotids are full. LUNGS: Respirations are unlabored. Her chest is clear. HEART: Has a regular rhythm. She has a fourth heart sound, but no third heart sound or murmur. PMI is not displaced. ABDOMEN: Soft and normally active. EXTREMITIES: Showed no edema. LABORATORY DATA: An electrocardiogram done at 2:30 this morning did show atrial fibrillation with a heart rate of about 150. Repeat tracing at 8:00 this morning showed sinus rhythm with a rate in the 70s. No diagnostic ST or T-wave changes were seen. LABORATORY STUDIES: Show that she does still have hyponatremia with a sodium of 125, potassium is 3.7, chloride 89, BUN 16, creatinine 0.88. Troponin levels have been unremarkable. TSH this admission was normal at 2.28, hemoglobin is 9.9, hematocrit 28.5. There are 13,500 white cells and 273,000 platelets present. IMPRESSION: 1. Conduction system disorder (sick sinus syndrome) with tachybrady variant. 2. Paroxysmal atrial fibrillation with rapid ventricular response. 3. Bradycardia, probably due to underlying conduction system disorder, exacerbated by verapamil. 4. Hyponatremia. 5. Degenerative joint disease with neck and back pain. 6. Confusion, which appears to be new lately. The patient does seem to be somewhat less confused this morning. 7. Intolerance of metoprolol due to bradycardia, fatigue, weakness, etc. PLAN: I did have to resume a rate slowing medication early this morning, diltiazem. She seems to be tolerating that along with her propafenone. I would continue to monitor her in the hospital and increase her activities. As noted, [place], [place] PROGRESS NOTE NAME: SAIDA HUYNH UNIT #: [id number] ROOM: 522 DOCTOR: KATTY LEE,JEISON BIRTHDATE: [birth year] my eventual plan is to have her be evaluated by the regional planner in [place] once this admission has been completed. The patient's hyponatremia remains a concern. I will defer this to her primary team. I thank the hospitalist physicians for asking our advice regarding her care. JEISON ALANIZ MD CM:PNTRANS [id number] JEISON ALANIZ MD 04/20/18 1504 interface
--- NOTE | ~2018-04-17 | PR ---
[place], [place] PROGRESS NOTE NAME: [facility] [id number] UNIT #: [id number] ROOM: 522 DOCTOR: JEISON ALANIZ MD BIRTHDATE: [birth year] DOS: 04/19/2018 CARDIOLOGY PROGRESS NOTE SUBJECTIVE: The patient was seen at her bedside today, 04/19/2018, for followup of paroxysmal atrial fibrillation. I reviewed her monitor from last evening. She did well until about 4:00 a.m. when she was noted to have sinus tachycardia. I spoke to nursing staff and at that time, they were having a code red. Apparently, this did upset the patient greatly and she became quite agitated. She had shown some signs of sundowning the night before. This morning, she is drowsy but arousable and denies any specific complaints. She does remember that her heart was beating fast in the middle of the night, however. PHYSICAL EXAMINATION: VITAL SIGNS: Today, her pulse is 77 and regular, blood pressure is 147/54. She is afebrile. NECK: Supple. She has no jugular distention. Carotids are full. LUNGS: Respirations are unlabored. Her chest is clear. HEART: Has a regular rhythm with a soft S4. The PMI is not displaced. ABDOMEN: Benign. EXTREMITIES: Showed no edema. DIAGNOSTIC DATA: Review of monitor strip shows she has maintained sinus rhythm and sinus tachycardia, but has not had any further atrial fibrillation. IMPRESSION: 1. Conduction system disorder (sick sinus syndrome) with tachy-ginny variant. 2. Paroxysmal atrial fibrillation with a rapid ventricular response. 3. Bradycardia, most likely due to underlying conduction system disorder, exacerbated by metoprolol. 4. Degenerative joint disease with neck and back pain. 5. Confusion, which appears to be new in the last several months. 6. Intolerance of metoprolol due to bradycardia, fatigue, weakness, etc. PLAN: After some consideration, I have decided to stop flecainide since this may be contributing to her mental status changes. This afternoon, we will start her on propafenone instead. We will check an electrocardiogram start propafenone and continue to monitor her in the hospital. I may or may not resume a low dose of diltiazem for rate control depending on her monitor findings. As noted previously, she should have an electrophysiology evaluation as an outpatient after this discharge. We thank the hospitalist physicians for asking our advice regarding her care. [place], [place] PROGRESS NOTE NAME: SAIDA HUYNH UNIT #: [id number] ROOM: 522 DOCTOR: JEISON ALANIZ MD BIRTHDATE: [birth year] JEISON ALANIZ MD CM:SUNNY [id number] JEISON ALANIZ MD 04/29/18 0816 interface
[~2018-04-17 10:49] MED LIST changes: -ALLERGY RELIE15.8 ML NAS; -BISACODYL LAXATI5 MG PO; -DILTIAZEM 24HR120 MG PO; -DOXYCYCLINE100 M3 PO; -FLECAINIDE ACE100 M1 PO; -GOOD SENSE400 MG/5 M PO; -HYDROCODONE-AC1 EAC1 PO; -KLOR-CON 1010 ME1 PO; -LASIX20 MG PO; -LEXAPRO10 MG PO; -LEXAPRO5 M1 PO; -Lopressor25 MG PO; -PROPAFENONE HC225 M1 PO; -SODIUM CHLORI1000 MG PO; -SODIUM CHLORIDE1 GM PO; -TYLENOL325 M2 PO
[2018-04-17 11:33] LABS: BASO # 0.1 10*3/uL (0.0-0.1); BASO % 0.5 % (0.0-1.0); EOS # 0.2 10*3/uL (0.0-0.4); EOS % 1.4 % (1.0-4.0); HEMATOCRIT 30.3 % (37.0-47.0); HEMOGLOBIN 10.1 g/dl (12.0-16.0); LYMPH # 3.6 10*3/uL (1.3-4.4); LYMPH % 28.3 % (27.0-41.0); MEAN CELL VOLUME 95.9 fl (81.0-99.0); MEAN CORPUSCULAR HGB CONC 33.3 g/dl (33.0-37.0); MEAN PLATELET VOLUME 11.2 fl (9.6-12.3); MONO # 0.6 10*3/uL (0.1-1.0); MONO % 4.5 % (3.0-9.0); NEUT # 8.3 10*3/uL (2.3-7.9); NEUT % 64.8 % (47.0-73.0); PLATELET COUNT AUTOMATED 345 10*3/uL (130-400); RED BLOOD COUNT 3.16 10*6/uL (4.10-5.10); RED CELL DISTRI WIDTH 13.2 % (0-14.5); WHITE BLOOD COUNT 12.8 10*3/uL (4.8-10.8)
[2018-04-17 11:43] LABS: ACT PARTIAL THROMBO TIME 24.7 SECONDS (20.8-31.5)
[2018-04-17 11:47] LABS: ALBUMIN 3.4 gm/dl (3.1-4.5); ALKALINE PHOSPHATASE 95 U/L (45-117); BUN 20 mg/dl (7-24); CHLORIDE 95 mmol/L (98-107); CREATININE 1.39 mg/dL (0.55-1.02); PHOSPHOROUS 3.4 mg/dL (2.5-4.9); POTASSIUM 5.1 mmol/L (3.5-5.1); SGOT/AST 19 IU/L (3-35); SGPT/ALT 16 U/L (12-78); SODIUM 127 mmol/L (136-145); TOTAL PROTEIN 6.6 gm/dL (6.4-8.2)
[2018-04-17 11:57] LABS: TROPONIN I < 0.015 ng/ml (<0.045)
[2018-04-17] MEDS ORDERED: MUCINEX DM 30/61 TAB PO (13:35)
[2018-04-17] MEDS ORDERED: ALLERGY RELIE15.8 ML NAS (13:37)
[2018-04-17] MEDS ORDERED: Lopressor25 MG PO (13:39)
[2018-04-17] MEDS ORDERED: FLECAINIDE ACE100 M1 PO (13:42)
[2018-04-17] MEDS ORDERED: KLOR-CON 1010 ME1 PO (13:44)
[2018-04-17] MEDS ORDERED: LASIX20 MG PO (13:45)
[2018-04-17 17:26] LABS: BILIRUBIN NEGATIVE (NEGATIVE); BLOOD NEGATIVE (NEGATIVE); CLARITY CLOUDY (CLEAR); COLOR YELLOW (YELLOW); GLUCOSE NEGATIVE (NEGATIVE); KETONE TRACE (NEGATIVE); LEUKO ESTERASE TRACE (NEGATIVE); NITRITE POSITIVE (NEGATIVE); UROBILINOGEN 0.2 E.U./dl (0.2-1.0)
[2018-04-17 17:33] LABS: BACTERIA 4+
[2018-04-17 17:35] LABS: WBC 31-40 wbc/hpf (0-5)
[2018-04-18] VITALS (10 sets, daily range): BP systolic 118–141; BP diastolic 51–82
[2018-04-18 05:53] LABS: ALBUMIN 3.2 gm/dl (3.1-4.5); BUN 15 mg/dl (7-24); CHLORIDE 94 mmol/L (98-107); CHOLESTEROL 190 mg/dL (<200); CREATININE 0.97 mg/dL (0.55-1.02); PHOSPHOROUS 3.1 mg/dL (2.5-4.9); POTASSIUM 4.4 mmol/L (3.5-5.1); SGOT/AST 17 IU/L (3-35); SGPT/ALT 15 U/L (12-78); SODIUM 126 mmol/L (136-145); TOTAL PROTEIN 6.4 gm/dL (6.4-8.2); TRIGLYCERIDES 123 mg/dl (<150); VLDL CHOLESTEROL 25 mg/dL (6-40)
[2018-04-18 05:59] LABS: ALKALINE PHOSPHATASE 95 U/L (45-117); HDL CHOLESTEROL 52 mg/dl (40-60); LDL CHOLESTEROL 113 mg/dL (9-159)
[2018-04-18 06:06] LABS: BASO % 0.2 % (0.0-1.0); EOS % 0.2 % (1.0-4.0); HEMATOCRIT 29.5 % (37.0-47.0); HEMOGLOBIN 9.9 g/dl (12.0-16.0); LYMPH # 2.6 10*3/uL (1.3-4.4); LYMPH % 19.8 % (27.0-41.0); MEAN CELL VOLUME 95.2 fl (81.0-99.0); MEAN CORPUSCULAR HGB 31.9 pg (27.0-31.0); MEAN CORPUSCULAR HGB CONC 33.6 g/dl (33.0-37.0); MEAN PLATELET VOLUME 11.7 fl (9.6-12.3); MONO # 0.7 10*3/uL (0.1-1.0); MONO % 5.5 % (3.0-9.0); NEUT # 9.7 10*3/uL (2.3-7.9); NEUT % 73.8 % (47.0-73.0); PLATELET COUNT AUTOMATED 307 10*3/uL (130-400); RED CELL DISTRI WIDTH 13.1 % (0-14.5); WHITE BLOOD COUNT 13.2 10*3/uL (4.8-10.8)
[2018-04-18 07:15] LABS: VITAMIN D, 25-HYDROXY 38.6 ng/mL (30-100)
[2018-04-19] VITALS: BP 133/61
[2018-04-19 06:44] LABS: BASO % 0.3 % (0.0-1.0); EOS # 0.1 10*3/uL (0.0-0.4); EOS % 0.4 % (1.0-4.0); HEMATOCRIT 28.5 % (37.0-47.0); HEMOGLOBIN 9.9 g/dl (12.0-16.0); LYMPH # 2.2 10*3/uL (1.3-4.4); LYMPH % 16.4 % (27.0-41.0); MEAN CELL VOLUME 93.8 fl (81.0-99.0); MEAN CORPUSCULAR HGB 32.6 pg (27.0-31.0); MEAN CORPUSCULAR HGB CONC 34.7 g/dl (33.0-37.0); MEAN PLATELET VOLUME 11.4 fl (9.6-12.3); MONO % 7.6 % (3.0-9.0); NEUT % 74.5 % (47.0-73.0); PLATELET COUNT AUTOMATED 273 10*3/uL (130-400); RED BLOOD COUNT 3.04 10*6/uL (4.10-5.10); RED CELL DISTRI WIDTH 13.2 % (0-14.5); WHITE BLOOD COUNT 13.5 10*3/uL (4.8-10.8)
[2018-04-19 07:05] LABS: ALBUMIN 3.2 gm/dl (3.1-4.5); ALKALINE PHOSPHATASE 95 U/L (45-117); BUN 12 mg/dl (7-24); CHLORIDE 91 mmol/L (98-107); CREATININE 0.73 mg/dL (0.55-1.02); POTASSIUM 3.8 mmol/L (3.5-5.1); SGOT/AST 23 IU/L (3-35); SGPT/ALT 20 U/L (12-78); SODIUM 125 mmol/L (136-145); TOTAL PROTEIN 6.6 gm/dL (6.4-8.2)
[2018-04-19 08:00] VITALS: BP 147/54
[2018-04-19 12:00] VITALS: BP 144/70
[2018-04-19 16:00] VITALS: BP 114/53
[2018-04-19 20:00] VITALS: BP 109/51
[2018-04-20] VITALS: BP 127/43
[2018-04-20 04:00] VITALS: BP 122/80
[2018-04-20 07:19] LABS: BUN 16 mg/dl (7-24); CHLORIDE 89 mmol/L (98-107); CREATININE 0.88 mg/dL (0.55-1.02); POTASSIUM 3.7 mmol/L (3.5-5.1); SODIUM 125 mmol/L (136-145)
[2018-04-20 08:00] VITALS: BP 123/57
[2018-04-20 12:00] VITALS: BP 111/49
[2018-04-20 16:00] VITALS: BP 120/60
[2018-04-20 20:00] VITALS: BP 117/49
[2018-04-21] VITALS: BP 121/58
[2018-04-21 07:06] LABS: BUN 14 mg/dl (7-24); CHLORIDE 89 mmol/L (98-107); CREATININE 0.78 mg/dL (0.55-1.02); POTASSIUM 4.1 mmol/L (3.5-5.1); SODIUM 125 mmol/L (136-145)
[2018-04-21 08:00] VITALS: BP 148/73
[2018-04-21 13:47] LABS: URINE CREATININE RANDOM 41.3 mg/dL
[2018-04-21 16:00] VITALS: BP 142/61
[2018-04-21 20:00] VITALS: BP 110/61
[2018-04-22] VITALS: BP 127/54
[2018-04-22 07:14] LABS: BASO # 0.1 10*3/uL (0.0-0.1); BASO % 0.5 % (0.0-1.0); EOS # 0.2 10*3/uL (0.0-0.4); EOS % 1.7 % (1.0-4.0); HEMATOCRIT 30.4 % (37.0-47.0); HEMOGLOBIN 10.5 g/dl (12.0-16.0); LYMPH # 2.9 10*3/uL (1.3-4.4); MEAN CELL VOLUME 93.8 fl (81.0-99.0); MEAN CORPUSCULAR HGB 32.4 pg (27.0-31.0); MEAN CORPUSCULAR HGB CONC 34.5 g/dl (33.0-37.0); MEAN PLATELET VOLUME 11.4 fl (9.6-12.3); MONO # 0.8 10*3/uL (0.1-1.0); MONO % 6.7 % (3.0-9.0); NEUT % 66.8 % (47.0-73.0); PLATELET COUNT AUTOMATED 332 10*3/uL (130-400); RED BLOOD COUNT 3.24 10*6/uL (4.10-5.10); RED CELL DISTRI WIDTH 13.3 % (0-14.5)
[2018-04-22 07:31] LABS: BUN 15 mg/dl (7-24); CHLORIDE 95 mmol/L (98-107); CREATININE 0.91 mg/dL (0.55-1.02); POTASSIUM 3.9 mmol/L (3.5-5.1); SODIUM 131 mmol/L (136-145)
[2018-04-22 07:32] LABS: PHOSPHOROUS 3.1 mg/dL (2.5-4.9)
[2018-04-22 08:00] VITALS: BP 130/52
[2018-04-22 12:00] VITALS: BP 107/65
[2018-04-22 16:00] VITALS: BP 127/59
[2018-04-22 20:00] VITALS: BP 125/63
[2018-04-23] VITALS: BP 128/69
[2018-04-23 07:40] LABS: BUN 15 mg/dl (7-24); CHLORIDE 101 mmol/L (98-107); CREATININE 0.92 mg/dL (0.55-1.02); POTASSIUM 3.7 mmol/L (3.5-5.1); SODIUM 137 mmol/L (136-145)
[2018-04-23 08:00] VITALS: BP 117/74
[2018-04-23 12:00] VITALS: BP 114/63
[2018-04-23] MEDS ORDERED: SODIUM CHLORIDE1 GM PO (15:21)
[2018-04-23] MEDS ORDERED: BISACODYL LAXATI5 MG PO (15:21)
[2018-04-23] MEDS ORDERED: HYDROCODONE-AC1 EAC1 PO (15:21)
[2018-04-23] MEDS ORDERED: GOOD SENSE400 MG/5 M PO (15:21)
[2018-04-23] MEDS ORDERED: PROPAFENONE HC225 M1 PO (15:21)
[2018-04-23] MEDS ORDERED: DILTIAZEM 24HR120 MG PO (15:21)
[2018-04-23] MEDS ORDERED: TYLENOL325 M2 PO (15:21)
[2018-04-23] MEDS ORDERED: LEXAPRO10 MG PO (15:25)
[2018-04-23 16:00] VITALS: BP 121/53
[2018-05-18] MEDS ORDERED: SODIUM CHLORI1000 MG PO (12:59)
== END 2018-04-23 17:05 | disposition other institution (70) | DRG 314 ==
LOC: ED 10:49 → 5E 12:28 → EDHOLD 12:28 → ICCU 12:47 → 5E 04-18 14:48
PROVIDERS: Internal Medicine; Student in an Organized Health Care Education/Training Program
DX: I95.9 Hypotension, unspecified (principal); N17.0 Acute kidney failure with tubular necrosis; G93.40 Encephalopathy, unspecified; E87.2 Acidosis; E87.1 Hypo-osmolality and hyponatremia; E83.41 Hypermagnesemia; I08.1 Rheumatic disorders of both mitral and tricuspid valves; F03.91 Unspecified dementia, unspecified severity, with behavioral disturbance; N39.0 Urinary tract infection, site not specified; I50.30 Unspecified diastolic (congestive) heart failure; Z51.5 Encounter for palliative care; I49.5 Sick sinus syndrome; I48.0 Paroxysmal atrial fibrillation; D64.9 Anemia, unspecified; B96.20 Unspecified Escherichia coli [E. coli] as the cause of diseases classified elsewhere; R73.9 Hyperglycemia, unspecified; E03.9 Hypothyroidism, unspecified; M19.90 Unspecified osteoarthritis, unspecified site; R41.0 Disorientation, unspecified; F32.9 Major depressive disorder, single episode, unspecified; F41.1 Generalized anxiety disorder; F09 Unspecified mental disorder due to known physiological condition; Z90.710 Acquired absence of both cervix and uterus; Z90.89 Acquired absence of other organs; Z98.42 Cataract extraction status, left eye; Z98.41 Cataract extraction status, right eye; Z87.891 Personal history of nicotine dependence; Z82.3 Family history of stroke; Z82.49 Family history of ischemic heart disease and other diseases of the circulatory system; Z88.2 Allergy status to sulfonamides; Z84.89 Family history of other specified conditions; Z79.899 Other long term (current) drug therapy; Z66 Do not resuscitate

== ENCOUNTER → 2018-05-18 | Outpatient (CLI) | payer MEDICARE ==
[~2018-05-18] MED LIST changes: +ALLERGY RELIE15.8 ML NAS; +BISACODYL LAXATI5 MG PO; +COLACE100 MG PO; +DEPAKOTE SPRIN125 MG PO; +DILTIAZEM 24HR120 MG PO; +DOXYCYCLINE100 M3 PO; +DULCOLAX10 M1 R; +FLECAINIDE ACE100 M1 PO; +GOOD SENSE400 MG/5 M PO; +HYDROCODONE-AC1 EAC1 PO; +HYDROXYZINE HCL IM; +KLOR-CON 1010 ME1 PO; +LASIX20 MG PO; +LEXAPRO10 MG PO; +LEXAPRO5 M1 PO; +LORAZEPAM I2 MG/1 ML PO; +Lopressor25 MG PO; +MACROBID100 M1 PO; +MILK OF MA400 MG/5 M PO; +MORPHINE S20 MG/5 ML PO; +PROPAFENONE HC225 M1 PO; +SODIUM CHLORI1000 MG PO; +SODIUM CHLORIDE1 GM PO; +TYLENOL325 M2 PO
[2018-05-18 12:45] VITALS: BP 97/52
[2018-05-18 14:25] VITALS: BP 96/58
[2018-05-18 14:50] VITALS: BP 111/59
[2018-05-18 15:50] VITALS: BP 116/60
[2018-05-18 16:50] VITALS: BP 120/70
[2018-05-18 17:40] VITALS: BP 112/72
== END | disposition home or self-care (01) ==
LOC: TRNFUSION 11:00
DX: D64.9 Anemia, unspecified (principal)

== ENCOUNTER 2018-05-19 11:34 | Emergency (ER) | payer MEDICARE ==
[~2018-05-19] VITALS: Ht 157.4 cm; Wt 51.3 kg
[~2018-05-19 11:34] MED LIST changes: -COLACE100 MG PO; -DEPAKOTE SPRIN125 MG PO; -DOXYCYCLINE100 M3 PO; -DULCOLAX10 M1 R; -HYDROXYZINE HCL IM; -LEXAPRO5 M1 PO; -LORAZEPAM I2 MG/1 ML PO; -MACROBID100 M1 PO; -MILK OF MA400 MG/5 M PO; -MORPHINE S20 MG/5 ML PO
[2018-05-19] MEDS ORDERED: MEDROL DOSEPAK4 MG PO (13:22)
== END 2018-05-19 13:40 | disposition home or self-care (01) ==
LOC: ED 11:34
DX: M47.812 Spondylosis without myelopathy or radiculopathy, cervical region (principal); G89.29 Other chronic pain; M25.511 Pain in right shoulder; M25.512 Pain in left shoulder; Z90.710 Acquired absence of both cervix and uterus; Z87.891 Personal history of nicotine dependence; Z88.2 Allergy status to sulfonamides; Z79.899 Other long term (current) drug therapy

== ENCOUNTER → 2018-05-19 | Outpatient (CLI) | payer MEDICARE | END | disposition home or self-care (01) | LOC: ORTHO 01:57 | DX: M25.519 Pain in unspecified shoulder (principal) ==

== ENCOUNTER 2018-05-22 06:25 | Inpatient (IN) | payer MEDICARE ==
[2018-05-22] VITALS (7 sets, daily range): BP systolic 112–140; BP diastolic 63–75
[~2018-05-22] VITALS: Ht 157.4 cm; Wt 58.1 kg
[2018-05-22 07:31] LABS: BASO % 0.1 % (0.0-1.0); EOS # 0.1 10*3/uL (0.0-0.4); EOS % 0.5 % (1.0-4.0); HEMATOCRIT 31.8 % (37.0-47.0); HEMOGLOBIN 10.4 g/dl (12.0-16.0); LYMPH # 2.7 10*3/uL (1.3-4.4); LYMPH % 20.6 % (27.0-41.0); MEAN CORPUSCULAR HGB 30.4 pg (27.0-31.0); MEAN CORPUSCULAR HGB CONC 32.7 g/dl (33.0-37.0); MEAN PLATELET VOLUME 10.7 fl (9.6-12.3); MONO # 0.8 10*3/uL (0.1-1.0); MONO % 6.3 % (3.0-9.0); NEUT # 9.3 10*3/uL (2.3-7.9); NEUT % 71.7 % (47.0-73.0); PLATELET COUNT AUTOMATED 316 10*3/uL (130-400); RED BLOOD COUNT 3.42 10*6/uL (4.10-5.10); RED CELL DISTRI WIDTH 14.6 % (0-14.5)
[2018-05-22 07:39] LABS: ACT PARTIAL THROMBO TIME 24.8 SECONDS (20.8-31.5); INTERNATIONAL NORM RATIO 1.2 (2.0-3.5)
[2018-05-22 07:45] LABS: ALBUMIN 2.9 gm/dl (3.1-4.5); ALKALINE PHOSPHATASE 118 U/L (45-117); BUN 18 mg/dl (7-24); CHLORIDE 103 mmol/L (98-107); CREATININE 0.73 mg/dL (0.55-1.02); POTASSIUM 4.1 mmol/L (3.5-5.1); SGOT/AST 20 IU/L (3-35); SGPT/ALT 16 U/L (12-78); SODIUM 136 mmol/L (136-145); TOTAL PROTEIN 6.7 gm/dL (6.4-8.2)
[2018-05-22] MEDS ORDERED: LEXAPRO5 M1 PO (10:28)
[2018-05-22 13:33] LABS: BILIRUBIN NEGATIVE (NEGATIVE); BLOOD TRACE-INTACT (NEGATIVE); CLARITY CLOUDY (CLEAR); COLOR YELLOW (YELLOW); GLUCOSE NEGATIVE (NEGATIVE); KETONE NEGATIVE (NEGATIVE); LEUKO ESTERASE 2+ (NEGATIVE); NITRITE NEGATIVE (NEGATIVE); PH 6.5 (5.0-9.0); UROBILINOGEN 0.2 E.U./dl (0.2-1.0)
[2018-05-22 13:48] LABS: BACTERIA 2+; WBC 41-50 wbc/hpf (0-5)
[2018-05-23] VITALS: BP 111/65
[2018-05-23 06:52] LABS: BASO % 0.3 % (0.0-1.0); EOS # 0.1 10*3/uL (0.0-0.4); EOS % 0.4 % (1.0-4.0); HEMATOCRIT 34.1 % (37.0-47.0); HEMOGLOBIN 10.7 g/dl (12.0-16.0); LYMPH # 3.1 10*3/uL (1.3-4.4); LYMPH % 19.9 % (27.0-41.0); MEAN CELL VOLUME 95.8 fl (81.0-99.0); MEAN CORPUSCULAR HGB 30.1 pg (27.0-31.0); MEAN CORPUSCULAR HGB CONC 31.4 g/dl (33.0-37.0); MEAN PLATELET VOLUME 11.8 fl (9.6-12.3); MONO # 1.2 10*3/uL (0.1-1.0); MONO % 7.4 % (3.0-9.0); NEUT # 11.2 10*3/uL (2.3-7.9); NEUT % 71.2 % (47.0-73.0); PLATELET COUNT AUTOMATED 309 10*3/uL (130-400); RED BLOOD COUNT 3.56 10*6/uL (4.10-5.10); RED CELL DISTRI WIDTH 14.7 % (0-14.5); WHITE BLOOD COUNT 15.7 10*3/uL (4.8-10.8)
[2018-05-23 07:26] LABS: ACT PARTIAL THROMBO TIME 25.9 SECONDS (20.8-31.5); INTERNATIONAL NORM RATIO 1.1 (2.0-3.5)
[2018-05-23 07:29] LABS: CHLORIDE 104 mmol/L (98-107); POTASSIUM 3.7 mmol/L (3.5-5.1); SODIUM 137 mmol/L (136-145)
[2018-05-23 07:36] LABS: ALBUMIN 2.6 gm/dl (3.1-4.5); ALKALINE PHOSPHATASE 119 U/L (45-117); BUN 19 mg/dl (7-24); CREATININE 0.77 mg/dL (0.55-1.02); PHOSPHOROUS 4.3 mg/dL (2.5-4.9); SGOT/AST 17 IU/L (3-35); SGPT/ALT 16 U/L (12-78); TOTAL PROTEIN 6.3 gm/dL (6.4-8.2)
[2018-05-23 08:00] VITALS: BP 116/65
[2018-05-23 12:00] VITALS: BP 115/58
[2018-05-23 16:00] VITALS: BP 106/52; BP 96/58
[2018-05-23 20:00] VITALS: BP 110/68
[2018-05-24] VITALS: BP 116/72
[2018-05-24 08:00] VITALS: BP 100/62
[2018-05-24 12:00] VITALS: BP 113/57
[2018-05-24] MEDS ORDERED: DOXYCYCLINE100 M3 PO (13:49)
== END 2018-05-24 17:00 | disposition other institution (70) | DRG 872 ==
LOC: ED 06:25 → 4E 08:03 → EDHOLD 08:03 → 4E 08:11
PROVIDERS: Emergency Medicine; Student in an Organized Health Care Education/Training Program
DX: A41.9 Sepsis, unspecified organism (principal); E44.0 Moderate protein-calorie malnutrition; S32.010A Wedge compression fracture of first lumbar vertebra, initial encounter for closed fracture; I48.0 Paroxysmal atrial fibrillation; D64.9 Anemia, unspecified; F03.90 Unspecified dementia, unspecified severity, without behavioral disturbance, psychotic disturbance, mood disturbance, and anxiety; E03.9 Hypothyroidism, unspecified; N39.0 Urinary tract infection, site not specified; G89.29 Other chronic pain; M47.812 Spondylosis without myelopathy or radiculopathy, cervical region; B96.20 Unspecified Escherichia coli [E. coli] as the cause of diseases classified elsewhere; M25.511 Pain in right shoulder; M25.512 Pain in left shoulder; W19.XXXA Unspecified fall, initial encounter; Z66 Do not resuscitate; Z51.5 Encounter for palliative care; Y93.89 Activity, other specified; Y92.128 Other place in nursing home as the place of occurrence of the external cause; Y99.8 Other external cause status; Z68.20 Body mass index [BMI] 20.0-20.9, adult; Z88.2 Allergy status to sulfonamides; Z90.710 Acquired absence of both cervix and uterus; Z98.42 Cataract extraction status, left eye; Z98.41 Cataract extraction status, right eye; Z87.891 Personal history of nicotine dependence; Z82.3 Family history of stroke; Z82.49 Family history of ischemic heart disease and other diseases of the circulatory system; Z79.1 Long term (current) use of non-steroidal anti-inflammatories (NSAID); Z79.899 Other long term (current) drug therapy

== ENCOUNTER 2018-06-01 10:51 | Inpatient (IN) | payer MEDICARE ==
[2018-06-01] VITALS (10 sets, daily range): BP systolic 104–132; BP diastolic 54–84
[~2018-06-01] VITALS: Ht 167.6 cm; Wt 56.2 kg
--- NOTE | ~2018-06-01 | CON ---
[place], [place] REPORT OF CONSULTATION [id number] UNIT #: [id number] [facility]OM: [facility] DOCTOR: BYRON, PHD BLAYNE BIRTHDATE: [birth year] DOS: 06/02/2018 HISTORY OF PRESENT ILLNESS: The patient is a 72-year-old female referred by the hospitalist for a competency evaluation. At the present time, she is on the Intensive Care Unit at [facility] following increased confusion and left arm pain. She was unable to provide a history. Per her medical record, her over a year ago and her son is her next of kin. She has been a resident at the [facility] [place] for the past 5 months. The staff at the [facility] reported her baseline is confused, forgetful, and oriented to herself and family only. The patient's son states that the patient has been experiencing hallucinations and delusions during this time as well. PAST MEDICAL HISTORY: Pertinent for compression fracture of L1 lumbar vertebra, degenerative arthritis of the cervical spine, dementia, hypothyroidism, paroxysmal atrial fibrillation, hysterectomy, tonsillectomy, bilateral cataract extraction, left humeral fracture, right clavicle fracture, lytic bone lesions on x-ray, recent left occipital lobe nonhemorrhagic infarct with minimal mass effect, sepsis, UTI. MEDICATIONS: Include Cardizem, Synthroid, Depakote, Rythmol SR, Xarelto, Zofran, Tylenol, Restoril, [place] 5/325 and Sublimaze. This patient was awake, alert, but not oriented. Eye contact and social skills are poor. Affect was restricted in range and the patient could not respond appropriately to an assessment of her mood. Speech was poorly articulated. Receptive and expressive language appeared impaired on a conversational basis. Thought process was tangential and blocking. Her responses to questions were not pertinent to topic. No overt hallucinations or delusions were detected. Memory appeared impaired conversationally. Insight and judgment were poor. The patient is clearly not competent to make informed health care decisions at this time. I spoke with the staff at the [facility] and the patient's son. She does not have a healthcare power of corporate associate attorney and her son is interested in pursuing guardianship. In my opinion, the patient would benefit from guardianship. DIAGNOSES: Delirium, not otherwise specified; major neurocognitive disorder, unspecified. RECOMMENDATIONS: In my opinion, the patient is not competent to make informed health care decisions. Thank you very much for this consult. [place], [place] REPORT OF CONSULTATION NAME: CHRISBARTSAIDA UNIT #: [id number] ROOM: [facility] DOCTOR: BYRON, PHD BLAYNE BIRTHDATE: [birth year] Rola Navas, PhD CM:CONSTR:REPORT OF CONSULTATION 1611 06/03/18 0524 interface
--- NOTE | ~2018-06-01 | PR ---
[place], [place] PROGRESS NOTE NAME[id number] UNIT #: [id number] ROOM: [facility] DOCTOR: RIGOBERTO ROBLES MDISAURO BIRTHDATE: [birth year] DOS: 06/04/2018 SUBJECTIVE: The patient independently seen and examined, [id number] encounter, history was confirmed. Physical examination was performed. All the lab were reviewed. Assessment and management personally completed. Note done by the medical practice administrator was approved as well. The patient has been noted comfortable at this time, resting on the bed. She has been noted confusional status. She has not been noted any acute hemodynamic instability. The hospice services had met with the patient, but the family members has not made any decision about the patient's code status or hospice care at this time. The patient has not been reported any respiratory distress. Review of systems could not be completed since the patient has been noted dementia, change in mental status, unable to provide me that. OBJECTIVE: VITAL SIGNS: Normal temperature, respiratory rate 22, heart rate 90, blood pressure 119/54-98/53. HEENT: Showed no new change. NECK: Supple. CARDIOVASCULAR: S1, S2 audible. LUNGS: Noted with moderate decreased breath sounds as previously. There were no crackles or wheezing. ABDOMEN: Soft, nontender. EXTREMITIES: The patient without any acute edema. VISIBLE SKIN: No lesions or rashes. MUSCULOSKELETAL: No deformities. The left upper extremity noted in the sling with current pathological fracture. MENTAL STATUS: The patient was noted awake, but confused. LABORATORY DATA: CT scan of the chest that was done yesterday shows evidence of nodules in the left lung with bilateral pleural fluids. IMPRESSION: 1. Strong suspicion of metastatic malignancy originating from the lung to other parts of the body has been considered. However, there was no pathological confirmation of the malignancy. 2. Bilateral pleural fluid. 3. Resolution of urinary tract infection. The culture of which was done on 06/02/2018 were noted no bacterial growth, showing resolution of the ESBL UTI. Contact isolation precautions were discontinued. In the meantime, continue palliative care. The patient has care, plan of management. Continue discussion with the family members about the patient further care and disposition. [place], [place] PROGRESS NOTE NAME: SAIDA HUYNH UNIT #: [id number] ROOM: [facility] DOCTOR: ISAURO ZARATE MD BIRTHDATE: [birth year] ISAURO FRANKLIN MD CM:PNTRANS [phone] ISAURO ROBLES MD 06/04/182036 interface
--- NOTE | ~2018-06-01 | PR ---
[place], [place] PROGRESS NOTE NAME: SAIDA HUYNH [facility] #: [id number] UNIT #: [id number] ROOM: [facility] DOCTOR: RIGOBERTO ROBLES MD,ISAURO BIRTHDATE: [birth year] DOS: 06/03/2018 SUBJECTIVE: The patient noted essentially the same, resting comfortably at this time. She was noted confusional status. Continue to get the treatment ____ ESBL producing a urinary tract infection and management. The preliminary culture for the repeat urine noted no bacterial growth. Not been noted any respiratory distress. Unable to give any history because of confusion. OBJECTIVE: VITAL SIGNS: For the patient which has been recorded showed temperature normal to 99.2 degree Fahrenheit, respiratory rate of 18-19, heart rate 116-124. The blood pressure 118/64-102/57. Pulse oxygen saturation on room air 96% saturation. HEENT: Examination shows head was atraumatic. Eyes nonicterus. NECK: Supple. CARDIOVASCULAR: S1, S2 is audible. LUNGS: The patient was noted without any crackles. Decreased breath sounds are noted in the lower portion of the lungs. ABDOMEN: Soft, nontender, bowel sounds present. EXTREMITIES: The patient was noted without any changes. SKIN: Visible skin lesions or rashes. CENTRAL NERVOUS SYSTEM: The patient with expressive aphasia. MUSCULOSKELETAL: No deformities. LABORATORY DATA: The patient's CBC today, WBC count 12.9, hemoglobin 9.3, hemoglobin 29.2, platelet count of 301,000. CMP, BUN normal, creatinine was normal, CO2 of 18. Albumin of 1.8. The CT scan of the chest, which was done without contrast was personally reviewed shows evidence of lymph node enlargement noted. Laury area and the lower cervical chain with a short dimension 1.6 and 1.4 respectively. Small bilateral pleural fluid noted with area of compression atelectasis. The patient noted a nodule which was noted in the left lower lobe 1.3 x 1.4 x 1.6 cm in size. Extensive lytic mass was noted in the left humerus with secondary fracture was also demonstrated. Multiple other lytic lesion was noted in the other different parts of the bone including the distal right clavicle. ____ with metastatic lesions. IMPRESSION: 1. Metastatic cancer would be considered may be originating from the lung with current pulmonary nodule the primary site. Multiple skeletal metastatic lesion was noted. 2. Small bilateral pleural fluid, most likely congestive heart failure with atrial fibrillation, rapid ventricular response. 3. Atrial fibrillation with rapid ventricular response, which has been managed with help of Cardiology services. 4. Chronic dementia. 5. Expressive aphasia with acute occipital stroke. PLAN OF THERAPY: Continuation of the current plan of management at this time with comfort measures and medical management of urinary tract infection and others. The discussion with the family members about the patient's code status [place], [place] PROGRESS NOTE NAME: SAIDA HUYNH UNIT #: [id number] ROOM: [facility] DOCTOR: RIGOBERTO ROBLES MD,ISAURO BIRTHDATE: [birth year] for possible hospice or comfort care would be done once available. Continue other supportive therapy, plan of management, care plan and treatment. Usual therapy, other plan of care. Supportive medical management plan of care. Pleural fluid was noted small at this time should be treated conservatively and would not require any thoracentesis. Further workup for the metastatic malignant if needed could be done easily with the bone biopsy of the left humerus area with the bone biopsy could be done by the sales merchandising specialist. ISAURO FRANKLIN MD CM:PNTRANS [id number] ISAURO ROBLES MD 06/03/18 1619 interface
--- NOTE | ~2018-06-01 | PR ---
[place], [place] PROGRESS NOTE [id number] #: [id number] ROOM: 407 DOCTOR: KYARA FREIRE DO BIRTHDATE: [birth year] DOS: 06/04/2018 SUBJECTIVE: The patient was seen and evaluated today. She was resting comfortably in bed. She continues to be confused. She does have expressive aphasia as well. Her urine culture was noted to have no bacterial growth. Hospice has talked with the family. They are unsure of what they are going to do at this time. OBJECTIVE: VITAL SIGNS: Temperature 98.2, heart rate 85-100, respirations 20, blood pressure 113/63, pulse ox 95% on room air. HEENT: Head is atraumatic. Eyes nonicteric. NECK: Supple. CARDIOVASCULAR: S1, S2 audible. LUNGS: Decreased breath sounds in the bilateral lower lobes. No crackles, wheezing or rhonchi. ABDOMEN: Soft, nontender, nondistended. Bowel sounds present. EXTREMITIES: No acute changes. SKIN: No visible lesions or rashes. CENTRAL NERVOUS SYSTEM: Expressive aphasia. No other abnormalities noted. MUSCULOSKELETAL: No deformities. LABORATORY DATA: CBC from 06/03/2018, white blood cells 12.9, hemoglobin 9.3, hematocrit 29.2, platelet count 301,000. CMP from 06/03/2018, sodium 139, potassium 3.7, chloride 108, CO2 of 18, BUN 12, creatinine 0.41. Albumin 1.8. Urine culture is negative for any bacteria. Blood cultures show no bacterial growth. Small bilateral pleural effusions noted on the patient's CAT scan from 06/03/2018. There is also an area of compression atelectasis. Pathologic fractures of the left proximal humerus and distal right clavicle also noted. There is multifocal involvement of the axial and appendicular skeleton. The mass in the left lower lobe of the lung measures 1.6 cm in its largest diameter. ASSESSMENT: 1. Metastatic cancer, likely originating from the lung, considering the current pulmonary nodules. 2. Small bilateral pleural fluid, most likely secondary to congestive heart failure. 3. Atrial fibrillation. Heart rate is now controlled. 4. Chronic dementia. 5. Expressive aphasia with acute occipital stroke. PLAN OF THERAPY: Cardiology is following for the patient's atrial fibrillation. She is now comfort care. Urine has been stopped as the urine cultures are not growing any bacteria. Family is considering their options at this time. Continue comfort measures. Biopsy of metastatic cancer lesion may be performed as an outpatient if desired by patient's family. No other changes in treatment plan at this time. [place], [place] PROGRESS NOTE NAME: SAIDA HUYNH UNIT #: [id number] ROOM: 407 DOCTOR: KYARA FREIRE DO BIRTHDATE: [birth year] Kyara Freire DO ISAURO FRANKLIN MD CM:PNTRANS [id number] KYARA FREIRE DO 06/05/18 0429 interface
--- NOTE | ~2018-06-01 | PR ---
[place], [place] PROGRESS NOTE NAME: [facility]IDA [facility] [id number] UNIT #: [id number] ROOM: 407 DOCTOR: RIGOBERTO ROBLES MD,ISAURO BIRTHDATE: [birth year] DOS: 06/07/2018 PULMONARY PROGRESS NOTE SUBJECTIVE: She has been noted comfortable, resting in the bed without any acute distress. Coughing and shortness of breath with sputum expectoration reported. The patient does not have verbal communication, noted expressive aphasia. PHYSICAL EXAMINATION: VITAL SIGNS: Temperature 99 degrees Fahrenheit, respiratory rate 18, heart rate 103 this morning, blood pressure 110/86. The pulse ox saturation on room air was recorded as 90% saturation. HEENT: No new change. CARDIOVASCULAR: S1, S2 audible. LUNGS: Noted without any wheeze or crackles. ABDOMEN: Soft, nontender. EXTREMITIES: Noted edema 1-2+ in the upper and the lower extremities. LABORATORY DATA: CBC today, WBC count 15.8, hemoglobin 9.1, platelet count was normal. BMP with normal BUN and creatinine. CO2 of 18. IMPRESSION: 1. Some fluid overload was noted at the present time. 2. The patient with mental status change, which has been noted chronic. 3. Recent treatment for ESBL producing urinary tract infection with Escherichia coli, already resolved. PLAN OF MANAGEMENT: Fluid restriction for the patient with possible consideration for diuretic because of fluid retention. Continue other therapy, plan of management, usual care. Supportive plan of therapy and care plan. ISAURO FRANKLIN MD CM:PNTRANS [phone] ISAURO ROBLES MD 06/07/18 1023 interface
--- NOTE | ~2018-06-01 | EKG ---
[place], [place] ELECTROCARDIOGRAM REPORT [id number] UNIT #: [id number] ROOM: [facility] DOCTOR: RICARDO DRAFT REPORT BIRTHDATE: [birth year] [facility] Test Date: 2018-06-01 Test Time: 11:48:35 Pat Name: SAIDA HUYNH Department: Room: [facility] Gender: F Replenishment Specialist: : 1945 Requested By: PRUDENCIO CERVANTES Order Number: [id number] Reading MD: Jeffrey Simons MD Measurements Intervals [place] Rate: 112 P: 53 OR: 120 QRS: 47 QRSD: 79 T: 28 QT: 321 QTc: 438 Interpretive Statements Sinus tachycardia Atrial premature complexes in couplets Borderline T abnormalities, anterior leads Electronically Signed On 06-04-2018 9:21:57 PDT by Jeffrey Simons MD CM:EKGRPT:ELECTROCARDIOGRAM REPORT 1148 0921 PRUDENCIO PETER DRAFT REPORT PRUDENCIO CERVANTES DO
--- NOTE | ~2018-06-01 | EKG ---
[place], [place] ELECTROCARDIOGRAM REPORT NAME: SAIDA HUYNH UNIT #: [id number] ROOM: [facility] DOCTOR: RICARDO DRAFT REPORT BIRTHDATE: [birth year] [facility] Test Date: 2018-06-03 Test Time: 08:52:04 Pat Name: SAIDA HUYNH Department: Room: [place] [address] Gender: F Solo Truck Driver: : 1945 Requested By: DARIUS GREY Order Number: [id number] Reading MD: Bill Stratton MD Measurements Intervals [place] Rate: 88 P: [place]: QRS: 45 QRSD: 82 T: 269 QT: 356 QTc: 431 Interpretive Statements Atrial fibrillation Low voltage, extremity leads Minimal ST depression, anterolateral leads Baseline wander in lead(s) V4 Electronically Signed On 06-03-2018 7:12:36 PDT by Bill Stratton MD CM:EKGRPT:ELECTROCARDIOGRAM REPORT 1 DARIUS SILVA DRAFT REPORT DARIUS GREY
--- NOTE | ~2018-06-01 | PR ---
[place], [place] PROGRESS NOTE NAME: SAIDA HUYNH [facility] #: [id number] UNIT #: [id number] ROOM: 407 DOCTOR: RIGOBERTO ROBLES MD,ISAURO BIRTHDATE: [birth year] DOS: 06/06/2018 SUBJECTIVE: The patient was noted comfortable at this time, resting on the bed, awake and alert, but confused as previously. There were symptoms of chest or hemoptysis noted. She was transferred from intensive care to medical floor. OBJECTIVE: VITAL SIGNS: This afternoon normal temperature, respiratory rate 18, heart rate 70, blood pressure 54-85. The pulse ox saturation on room air 93% saturation. HEENT: No acute change. NECK: Supple. CARDIOVASCULAR: S1, S2 is audible. LUNGS: Without any wheeze or crackles. ABDOMEN: Soft, nontender, bowel sounds present. EXTREMITIES: Without any acute edema. IMPRESSION: 1. Suspected malignant process for the patient, metastasis, lung cancer to the bone, patient with acute fracture of the left ____ pathological. Change in mental status. The patient noted with chronic dementia. 2. Resolution previously treated. Extended-spectrum beta-lactamase producing Gram-negative urinary tract infection with negative cultures. PLAN OF TREATMENT: No changes in plan of care at this time. Continue patient's current therapy, plan of management as in progress. Usual care, other supportive plan of therapy and care. ISAURO FRANKLIN MD CM:PNTRANS [id number] ISAURO ROBLES MD 06/07/18 0051 interface
--- NOTE | ~2018-06-01 | CON ---
[place], [place] REPORT OF CONSULTATION NAME: SAIDA HUYNH [facility] #: [id number] UNIT #: [id number] ROOM: [facility] DOCTOR: ISAURO ZARATE MD BIRTHDATE: [birth year] DOS: 06/02/2018 PULMONARY CONSULTATION, EVALUATION, AND MANAGEMENT REASON FOR CONSULTATION: Change in mental status for the critical care evaluation. HISTORY OF PRESENT ILLNESS: This is a 72-year-old white female. The patient was noted with a history of multiple medical problems, currently a resident of [facility]. The patient has been reported at a recent embolic stroke in 05/2018. She has been getting rehabilitation in the nursing facility. The patient was sent to the hospital Emergency Room, to be assessed the patient has been noted with increased confusional status, change in mental status assessment. The patient has been admitted to the intensive care unit for further medical management. The patient continued to show signs of disorientation and unable to give any history. All the history contained and document for based on the review of the medical record done by the other physicians as well as a nurse's notes. She is a 72-year-old white female patient. She has been reported as symptoms of left-sided chest pain as well and increased confusion. She has recently been diagnosed with ESBL producing urinary tract infection, which has been treated in 05/2018. The patient was getting the Macrobid further medical management of urinary tract infection as well. The patient has not been reported symptoms of shortness of breath, coughing, chest pain or not noted with any respiratory distress. Upon assessment, the only complaint, otherwise besides the mental status changes were reported as pain of the left upper extremity with some swelling. REVIEW OF SYSTEMS: Could not be completed because of the patient's changes in mental status. The x-ray of the left humerus was done, which was reported as a pathological fracture with the preexisting lytic lesion. The patient was also reported as a finding of lateral end of the right clavicle with pathological fracture as well. Possibility of metastatic disease was suggested for this patient from malignancy in the bones. PAST MEDICAL HISTORY: 1. Otherwise reported with recent urinary tract infection with ESBL species, treated previously with antibiotics, receiving Macrobid prior to admission to the hospital. 2. Embolic stroke, also reported. Details were unknown. 3. History of dementia. 4. Hypothyroidism. 5. Paroxysmal atrial fibrillation. PAST SURGICAL HISTORY: 1. Bilateral cataract extraction. 2. Hysterectomy. 3. Tonsillectomy. SOCIAL HISTORY: The patient has been reported as former tobacco use in the distant past, details unknown. There was no history of alcohol use or any [place], [place] REPORT OF CONSULTATION NAME: SAIDA HUYNH UNIT #: [id number] ROOM: [facility] DOCTOR: RIGOBERTO ROBLES MD,ISAURO BIRTHDATE: [birth year] illicit drug use known. FAMILY HISTORY: Reported father at age of 90+ years old with complication of CVA. Mother at 60 due to complication of myocardial infarction. MEDICATIONS: At Nursing facility were noted as use of Cardizem-CD, Depakote, Colace, Vicodin, hydroxyzine, levothyroxine, magnesium hydroxide, Macrobid 100 mg b.i.d., propafenone, Xarelto 20 mg at bedtime, sodium chloride tablets and others. DRUG ALLERGIES: ALLERGIES TO THE BACTRIM. PHYSICAL EXAMINATION: GENERAL: The patient is a 72-year-old female who has been noted currently awake and alert, but confused, does not know in time and place. Does not follow vocal commands. VITAL SIGNS: The height noted 5 feet 6 inches, weight 124 pounds. Vital signs, which has been recorded showed the temperature 99.2 degrees Fahrenheit to normal temperature, respiratory rate of 18-20, and heart rate of 93-112. The blood pressure 124/68 to 133/67. Pulse ox saturation on room air was 96% saturation. HEENT: Examination shows head was atraumatic. Oral mucosa appeared to be moist. Eyes nonicterus. NECK: Supple. CARDIOVASCULAR: S1, S2 is audible. LUNGS: The patient was noted without any wheezing or crackles. ABDOMEN: Soft, nontender. EXTREMITIES: The patient was noted without edema, clubbing of the lower extremity. Some swelling of the left upper extremity was noted. VISIBLE SKIN: No lesions or rashes. CENTRAL NERVOUS SYSTEM: Cannot be examined as the patient noted confused. MUSCULOSKELETAL: No visible gross abnormalities. LABORATORY DATA: CBC on 06/01/2018, WBC count 17.3, hemoglobin 8.6 and hematocrit 27.6, platelet count was normal. The lactic acid noted 2.0 yesterday. PT/PTT yesterday normal. CMP that was yesterday on admission was noted as normal BUN and creatinine. Sodium was normal. CO2 20. Albumin 2.1. Troponin 0.060. Ultrasound of the upper extremity left side was noted. There was no evidence of deep venous thrombosis, left upper extremity. CT scan of the head with and without contrast reported as findings of an embolic stroke noted subacute, nonhemorrhagic with minimal mass effect in the left occipital area. Troponin was still noted minimally elevated 0.103 to 0.102. CMP of the patient that was done on 06/02/2018 was noted with normal BUN and creatinine. CO2 was noted as 20. Albumin of 1.9. The ESR was noted at 55. CBC on 06/02/2018; WBC count 16.3, hemoglobin 9.7 and 30.5, platelet count 275,000. CT scan of the abdomen and pelvis was done this morning shows evidence of metastatic bony lesions, but there was no abnormality, otherwise reported in the abdomen. Cholecystitis was also reported. A fat containing abdominal hernia. The chest x-ray one view, which was done was noted without any gross pulmonary infiltration and visible nodules. [place], [place] REPORT OF CONSULTATION NAME: SAIDA HUYNH UNIT #: [id number] ROOM: [facility] DOCTOR: ASCENCION ZARATE MDM BIRTHDATE: [birth year] IMPRESSION: 1. The patient who has been currently admitted to the hospital noted with increased confusion with acute embolic stroke possible continued urinary tract infection with early sepsis would be considered. 2. Rule out any metastatic disease to the brain as well. The periphery with the MRI for this patient upon stability. 3. Pathological fracture of the left humeral and clavicle was also noted and worsening multiple myeloma as suggested by the radiologist. There was no evidence of hypercalcemia. 4. Past history of mild hyponatremia, which has been treated with salt tablets with possible SIADH, reported recent admission and discharge in 05/2018 on this hospitalization. 5. History of dementia was also noted. PLAN OF MANAGEMENT: The patient showed to have CT scan of the chest done as well to rule out any occult mass for pulmonary nodule further assessment. The bone biopsy needs to be done for this patient and possible started workup patient multiple myeloma. The patient to be done appropriately. Monitor respiratory status of the patient closely. The patient has been getting antibiotic for the medical management of urinary tract infection with meropenem. The patient was also started on doxycycline yesterday that is not needed. Monitoring the mental status, the patient has no aspiration issues. If the patient does have any difficulty swallowing, so far nothing has been reported. All other supportive therapy, plan of management to be continued as previously ordered. Repeat culture of the urine has been taken, which is pending to be reviewed. Blood culture on this hospitalization, which will be reviewed. Other assessment and medical management, plan for the patient as previously outlined will be continued. Thank you for allowing me to participate in the care of this patient. ISAURO FRANKLIN MD CM:CONSTR:REPORT OF CONSULTATION 1311 06/02/18 1709 interface
[~2018-06-01 10:51] MED LIST changes: +DOXYCYCLINE100 M3 PO; +LEXAPRO5 M1 PO
[2018-06-01] MEDS ORDERED: COLACE100 MG PO (10:57)
[2018-06-01] MEDS ORDERED: DEPAKOTE SPRIN125 MG PO (10:58)
[2018-06-01] MEDS ORDERED: MACROBID100 M1 PO (11:02)
[2018-06-01 11:14] LABS: BILIRUBIN NEGATIVE (NEGATIVE); BLOOD NEGATIVE (NEGATIVE); CLARITY SL CLOUDY (CLEAR); COLOR YELLOW (YELLOW); GLUCOSE NEGATIVE (NEGATIVE); KETONE 1+ (NEGATIVE); LEUKO ESTERASE NEGATIVE (NEGATIVE); NITRITE NEGATIVE (NEGATIVE); SPECIFIC GRAVITY 1.025 (1.005-1.030); UROBILINOGEN 0.2 E.U./dl (0.2-1.0)
[2018-06-01 11:21] LABS: BACTERIA 1+; FINE GRANULAR CAST 0-2; MUCOUS 1+; RBC 0-2 rbc/hpf (0-2)
[2018-06-01 12:15] LABS: BASO % 0.2 % (0.0-1.0); EOS % 0.1 % (1.0-4.0); HEMATOCRIT 27.6 % (37.0-47.0); HEMOGLOBIN 8.6 g/dl (12.0-16.0); LYMPH # 2.7 10*3/uL (1.3-4.4); LYMPH % 15.6 % (27.0-41.0); MEAN CELL VOLUME 96.8 fl (81.0-99.0); MEAN CORPUSCULAR HGB 30.2 pg (27.0-31.0); MEAN CORPUSCULAR HGB CONC 31.2 g/dl (33.0-37.0); MEAN PLATELET VOLUME 11.5 fl (9.6-12.3); MONO # 0.9 10*3/uL (0.1-1.0); NEUT # 13.6 10*3/uL (2.3-7.9); NEUT % 78.5 % (47.0-73.0); PLATELET COUNT AUTOMATED 345 10*3/uL (130-400); RED BLOOD COUNT 2.85 10*6/uL (4.10-5.10); RED CELL DISTRI WIDTH 15.1 % (0-14.5); WHITE BLOOD COUNT 17.3 10*3/uL (4.8-10.8)
[2018-06-01 12:23] LABS: ACT PARTIAL THROMBO TIME 30.7 SECONDS (20.8-31.5); INTERNATIONAL NORM RATIO 1.1 (2.0-3.5)
[2018-06-01 12:31] LABS: ALBUMIN 2.1 gm/dl (3.1-4.5); ALKALINE PHOSPHATASE 125 U/L (45-117); BUN 23 mg/dl (7-24); CHLORIDE 105 mmol/L (98-107); CREATININE 0.66 mg/dL (0.55-1.02); SGOT/AST 33 IU/L (3-35); SGPT/ALT 13 U/L (12-78); SODIUM 139 mmol/L (136-145); TOTAL PROTEIN 6.3 gm/dL (6.4-8.2)
[2018-06-01 12:38] LABS: VALPROIC ACID (DEPAKENE) 63.1 ug/ml (50-100)
[2018-06-01 12:42] LABS: TROPONIN I 0.063 ng/ml (<0.045)
[2018-06-01] MEDS ORDERED: HYDROXYZINE HCL IM (15:37)
[2018-06-01] MEDS ORDERED: MILK OF MA400 MG/5 M PO (15:39)
[2018-06-02] VITALS: BP 111/52
[2018-06-02 04:00] VITALS: BP 132/65
[2018-06-02 06:23] LABS: ALBUMIN 1.9 gm/dl (3.1-4.5); ALKALINE PHOSPHATASE 113 U/L (45-117); BUN 18 mg/dl (7-24); CHLORIDE 107 mmol/L (98-107); CHOLESTEROL 169 mg/dL (<200); HDL CHOLESTEROL 38 mg/dl (40-60); LDL CHOLESTEROL 110 mg/dL (9-159); PHOSPHOROUS 3.1 mg/dL (2.5-4.9); POTASSIUM 3.7 mmol/L (3.5-5.1); SODIUM 140 mmol/L (136-145); TRIGLYCERIDES 104 mg/dl (<150); VLDL CHOLESTEROL 21 mg/dL (6-40)
[2018-06-02 06:29] LABS: INTERNATIONAL NORM RATIO 1.2 (2.0-3.5)
[2018-06-02 06:33] LABS: CREATININE 0.43 mg/dL (0.55-1.02); FREE T4 0.97 ng/dl (0.76-1.46); SGOT/AST 27 IU/L (3-35); SGPT/ALT 12 U/L (12-78); TOTAL PROTEIN 5.6 gm/dL (6.4-8.2)
[2018-06-02 06:49] LABS: BASO % 0.2 % (0.0-1.0); EOS % 0.2 % (1.0-4.0); HEMATOCRIT 30.5 % (37.0-47.0); HEMOGLOBIN 9.7 g/dl (12.0-16.0); LYMPH # 2.5 10*3/uL (1.3-4.4); LYMPH % 15.5 % (27.0-41.0); MEAN CORPUSCULAR HGB 29.2 pg (27.0-31.0); MEAN CORPUSCULAR HGB CONC 31.8 g/dl (33.0-37.0); MEAN PLATELET VOLUME 11.6 fl (9.6-12.3); NEUT # 12.5 10*3/uL (2.3-7.9); PLATELET COUNT AUTOMATED 275 10*3/uL (130-400); RED BLOOD COUNT 3.32 10*6/uL (4.10-5.10); RED CELL DISTRI WIDTH 17.6 % (0-14.5); WHITE BLOOD COUNT 16.3 10*3/uL (4.8-10.8)
[2018-06-02 06:51] LABS: MEAN CELL VOLUME 91.9 fl (81.0-99.0)
[2018-06-02 08:00] VITALS: BP 133/67
[2018-06-02 08:18] LABS: VITAMIN D, 25-HYDROXY 21.5 ng/mL (30-100)
[2018-06-02 12:00] VITALS: BP 131/70
[2018-06-02 16:00] VITALS: BP 123/76
[2018-06-02 20:03] VITALS: BP 131/81
[2018-06-03] VITALS (11 sets, daily range): BP systolic 102–130; BP diastolic 49–95
[2018-06-03 06:07] LABS: BASO % 0.3 % (0.0-1.0); EOS # 0.1 10*3/uL (0.0-0.4); EOS % 0.5 % (1.0-4.0); HEMATOCRIT 29.2 % (37.0-47.0); HEMOGLOBIN 9.3 g/dl (12.0-16.0); LYMPH # 2.2 10*3/uL (1.3-4.4); LYMPH % 16.8 % (27.0-41.0); MEAN CORPUSCULAR HGB 29.6 pg (27.0-31.0); MEAN CORPUSCULAR HGB CONC 31.8 g/dl (33.0-37.0); MEAN PLATELET VOLUME 10.9 fl (9.6-12.3); MONO # 0.9 10*3/uL (0.1-1.0); MONO % 7.2 % (3.0-9.0); NEUT # 9.5 10*3/uL (2.3-7.9); NEUT % 73.7 % (47.0-73.0); PLATELET COUNT AUTOMATED 301 10*3/uL (130-400); RED BLOOD COUNT 3.14 10*6/uL (4.10-5.10); RED CELL DISTRI WIDTH 17.2 % (0-14.5); WHITE BLOOD COUNT 12.9 10*3/uL (4.8-10.8)
[2018-06-03 06:15] LABS: ALBUMIN 1.8 gm/dl (3.1-4.5); ALKALINE PHOSPHATASE 106 U/L (45-117); BUN 12 mg/dl (7-24); CHLORIDE 108 mmol/L (98-107); CREATININE 0.41 mg/dL (0.55-1.02); POTASSIUM 3.7 mmol/L (3.5-5.1); SGOT/AST 28 IU/L (3-35); SGPT/ALT 13 U/L (12-78); SODIUM 139 mmol/L (136-145); TOTAL PROTEIN 5.4 gm/dL (6.4-8.2)
[2018-06-04] VITALS (9 sets, daily range): BP systolic 11–126; BP diastolic 50–77
[2018-06-05] VITALS: BP 113/56
[2018-06-05 07:15] LABS: BASO % 0.1 % (0.0-1.0); EOS # 0.1 10*3/uL (0.0-0.4); EOS % 0.3 % (1.0-4.0); HEMATOCRIT 28.3 % (37.0-47.0); HEMOGLOBIN 9.1 g/dl (12.0-16.0); LYMPH # 2.5 10*3/uL (1.3-4.4); LYMPH % 15.7 % (27.0-41.0); MEAN CELL VOLUME 93.1 fl (81.0-99.0); MEAN CORPUSCULAR HGB 29.9 pg (27.0-31.0); MEAN CORPUSCULAR HGB CONC 32.2 g/dl (33.0-37.0); MEAN PLATELET VOLUME 11.5 fl (9.6-12.3); MONO # 0.9 10*3/uL (0.1-1.0); MONO % 5.4 % (3.0-9.0); NEUT # 12.2 10*3/uL (2.3-7.9); NEUT % 77.2 % (47.0-73.0); PLATELET COUNT AUTOMATED 302 10*3/uL (130-400); RED BLOOD COUNT 3.04 10*6/uL (4.10-5.10); RED CELL DISTRI WIDTH 17.3 % (0-14.5); WHITE BLOOD COUNT 15.8 10*3/uL (4.8-10.8)
[2018-06-05 07:23] LABS: BUN 11 mg/dl (7-24); CHLORIDE 110 mmol/L (98-107); CREATININE 0.42 mg/dL (0.55-1.02); POTASSIUM 3.7 mmol/L (3.5-5.1); SODIUM 138 mmol/L (136-145)
[2018-06-05 08:00] VITALS: BP 124/62
[2018-06-05 16:00] VITALS: BP 139/68
[2018-06-05 20:00] VITALS: BP 139/67
[2018-06-06 08:00] VITALS: BP 154/85
[2018-06-06 16:00] VITALS: BP 153/76
[2018-06-07] VITALS: BP 110/86
[2018-06-07 08:00] VITALS: BP 121/75
== END 2018-06-07 14:11 | disposition hospice, home (50) | DRG 871 ==
LOC: ED 10:51 → ICCU 14:06 → EDHOLD 14:06 → ICCU 14:25 → 4E 06-04 21:02
PROVIDERS: Internal Medicine
PROC: 30233N1 Transfusion of Nonautologous Red Blood Cells into Peripheral Vein, Percutaneous Approach (ICD-10-PCS; principal; 2018-06-01)
DX: A41.9 Sepsis, unspecified organism (principal); I21.A1 Myocardial infarction type 2; E43 Unspecified severe protein-calorie malnutrition; I63.10 Cerebral infarction due to embolism of unspecified precerebral artery; G93.41 Metabolic encephalopathy; C79.51 Secondary malignant neoplasm of bone; N39.0 Urinary tract infection, site not specified; I48.0 Paroxysmal atrial fibrillation; E87.8 Other disorders of electrolyte and fluid balance, not elsewhere classified; B96.20 Unspecified Escherichia coli [E. coli] as the cause of diseases classified elsewhere; C34.90 Malignant neoplasm of unspecified part of unspecified bronchus or lung; R47.01 Aphasia; S42.202A Unspecified fracture of upper end of left humerus, initial encounter for closed fracture; D64.9 Anemia, unspecified; S42.034A Nondisplaced fracture of lateral end of right clavicle, initial encounter for closed fracture; F03.90 Unspecified dementia, unspecified severity, without behavioral disturbance, psychotic disturbance, mood disturbance, and anxiety; N19 Unspecified kidney failure; M89.9 Disorder of bone, unspecified; R65.20 Severe sepsis without septic shock; R74.8 Abnormal levels of other serum enzymes; E03.9 Hypothyroidism, unspecified; G89.29 Other chronic pain; M47.812 Spondylosis without myelopathy or radiculopathy, cervical region; Z66 Do not resuscitate; Z51.5 Encounter for palliative care; K56.41 Fecal impaction; Z96.1 Presence of intraocular lens; Z16.12 Extended spectrum beta lactamase (ESBL) resistance; R41.0 Disorientation, unspecified; R91.8 Other nonspecific abnormal finding of lung field; I08.1 Rheumatic disorders of both mitral and tricuspid valves; Z88.2 Allergy status to sulfonamides; Z79.899 Other long term (current) drug therapy; Z90.89 Acquired absence of other organs; Z90.710 Acquired absence of both cervix and uterus; S32.010D Wedge compression fracture of first lumbar vertebra, subsequent encounter for fracture with routine healing; Z87.440 Personal history of urinary (tract) infections; Z98.42 Cataract extraction status, left eye; Z98.41 Cataract extraction status, right eye; Z87.891 Personal history of nicotine dependence; Z82.49 Family history of ischemic heart disease and other diseases of the circulatory system; Z82.3 Family history of stroke; Z84.89 Family history of other specified conditions; Z68.23 Body mass index [BMI] 23.0-23.9, adult

== ENCOUNTER 2018-06-07 14:24 | Inpatient (IN) | payer OTHER, MEDICARE ==
[~2018-06-07] VITALS: Ht 167.6 cm; Wt 56.2 kg
[2018-06-07 08:00] VITALS: BP 121/75
[2018-06-07 12:00] VITALS: BP 126/46
[~2018-06-07 14:24] MED LIST changes: +COLACE100 MG PO; +DEPAKOTE SPRIN125 MG PO; +HYDROXYZINE HCL IM; +MACROBID100 M1 PO; +MILK OF MA400 MG/5 M PO
[2018-06-07 16:00] VITALS: BP 116/64
[2018-06-07 20:00] VITALS: BP 124/73
[2018-06-08] VITALS: BP 135/67
[2018-06-08 08:00] VITALS: BP 122/48
[2018-06-08 16:00] VITALS: BP 120/65
[2018-06-08 20:00] VITALS: BP 119/67
[2018-06-09] VITALS: BP 138/65
[2018-06-09 08:00] VITALS: BP 132/66
[2018-06-09 13:16] VITALS: BP 124/56
[2018-06-09 16:56] VITALS: BP 122/55
[2018-06-09 20:00] VITALS: BP 104/51
[2018-06-10] VITALS: BP 125/50
[2018-06-10 08:00] VITALS: BP 126/65
[2018-06-10] MEDS ORDERED: MORPHINE S20 MG/5 ML PO (11:25)
[2018-06-10] MEDS ORDERED: LORAZEPAM I2 MG/1 ML PO (11:25)
[2018-06-10] MEDS ORDERED: DULCOLAX10 M1 R (11:25)
[2018-06-10 12:00] VITALS: BP 115/71
[2018-06-10 16:00] VITALS: BP 116/68
== END 2018-06-10 18:24 | disposition hospice, home (50) | DRG 951 ==
LOC: 4E 14:24
DX: Z51.5 Encounter for palliative care (principal); E43 Unspecified severe protein-calorie malnutrition; C79.51 Secondary malignant neoplasm of bone; C34.90 Malignant neoplasm of unspecified part of unspecified bronchus or lung; I48.0 Paroxysmal atrial fibrillation; M84.411A Pathological fracture, right shoulder, initial encounter for fracture; M84.422A Pathological fracture, left humerus, initial encounter for fracture; D64.9 Anemia, unspecified; F03.90 Unspecified dementia, unspecified severity, without behavioral disturbance, psychotic disturbance, mood disturbance, and anxiety; E03.9 Hypothyroidism, unspecified; G89.29 Other chronic pain; M47.812 Spondylosis without myelopathy or radiculopathy, cervical region; Z66 Do not resuscitate; Z90.710 Acquired absence of both cervix and uterus; Z90.89 Acquired absence of other organs; Z98.42 Cataract extraction status, left eye; Z87.440 Personal history of urinary (tract) infections; Z91.81 History of falling; Z98.41 Cataract extraction status, right eye; Z87.891 Personal history of nicotine dependence; Z82.3 Family history of stroke; Z82.49 Family history of ischemic heart disease and other diseases of the circulatory system; Z88.2 Allergy status to sulfonamides; Z84.89 Family history of other specified conditions; Z79.899 Other long term (current) drug therapy; Z68.23 Body mass index [BMI] 23.0-23.9, adult